=== PATIENT | female | born 1980 | race Hispanic/Latino ===

== ENCOUNTER 2017-07-04 22:26 | Inpatient (IN) | payer OTHER ==
[~2017-07-04] VITALS: Ht 152.4 cm; Wt 81.6 kg
[~2017-07-04 22:26] MED LIST: CEFTIN500 MG PO; CEPHALEXIN500 MG PO; CIPRO500 MG PO; CIPROFLOXACIN500 MG PO; COLACE100 MG PO; FAMOTIDINE20 MG PO; IBUPROFEN400 MG PO; LEVAQUIN500 MG PO; PHENAZOPYRIDIN100 MG PO; PYRIDIUM100 MG; SULFAMETHOXAZO1 EAC1 PO; TYLENOL # 31 EA PO; ULTRAM 50MG50 MG PO; [UNRECOGNIZED DRUG - OTHER] PO
--- OUTSIDE RECORDS SUMMARY | 2017-07-04 22:29 | XMS REPORT ---
Author [facility] Address Unknown Phone Unavailable Care Team Providers Care Precipitate Washer Name Role Phone PENNY HENDRICKSON Unavailable Unavailable KELVIN VANG Unavailable Unavailable Problems This patient has no known problems. Allergies, Adverse Reactions, Alerts This patient has no known allergies or adverse reactions. Medications This patient has no known medications. Results Test Description Test Time Test Comments Text Results Atomic Results Result Comments ABDOMEN-1VIEW (KUB) [place] [address] Patient Name: BARNEY ANG MR #: [id number] : 1980 Age/Sex: 36/F Req #: [id number] [facility] Physician: Ordered by: PENNY HENDRICKSON MD Report #: [id number] Location: [facility] Room/Bed: Procedure: [id number] DX/ABDOMEN-1VIEW (KUB) Exam Date: 04/30/17 Exam Time: 1545 REPORT STATUS: Signed PROCEDURE: X-RAY ABDOMEN - KUB COMPARISON: Abdomen one view 03/30/2017. INDICATIONS : CALCULUS OF KIDNEY FINDINGS: There is a non-obstructed bowel- gas pattern. Multiple calculi project over the renal shadows bilaterally, the largest measuring 1.6 cm in the inferior pole of the left kidney. There are no calcifications projected over the expected course of the ureters or bladder. There are no acute osseous abnormalities. The lung bases are clear. CONCLUSION: Stable bilateral nephrolithiasis. Dictated by: Cory Garsia M.D. on 04/30/2017 at 16:40 Electronically approved by: Cory Garsia M.D. on 04/30/2017 at 16:40 Dictated By: CORY GARSIA MD 1640 Transcribed By: YUSUF on 04/30/17 1640 COPY TO: PENNY HENDRICKSON MD ABDOMEN-1VIEW (KUB) [place] [address] Patient Name: BARNEY ANG MR #: [id number] : 1980 Age/Sex: 36/F Req #: [id number] Adm Physician: Ordered by: PENNY HENDRICKSON MD Report #: [id number] Location: OR Room/Bed: Procedure: [id number] DX/ABDOMEN-1VIEW (KUB) Exam Date: 03/30/17 Exam Time: 0607 REPORT STATUS: Signed ABDOMEN-1VIEW (KUB) Clinical history: Preoperative evaluation for stones Technique: AP view abdomen Comparison: 03/16/2017 Findings: Hemidiaphragms are excluded from view. Nonobstructive bowel gas pattern. Cholecystectomy clips. Left renal stone burden overall appears decreased from prior. The largest stones measure approximately 1.7 cm over the left lower pole and 1 cm over the left renal pelvis. Stable right renal stone burden, the largest 6 mm over the right interpolar region. 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 Impression: 1. Mild decrease in left renal stone burden with large stones over the left lower pole and renal pelvis. 2. Stable right renal stone burden. Signed by: Dr Steve Tavarez MD on 03/30/2017 6:33 AM Dictated By: STEVE TAVAREZ MD 2 Transcribed By: ANGELINA on 03/30/17632 COPY TO: PENNY HENDRICKSON MD ABDOMEN-1VIEW (KUB) [place] [address] Patient Name: BARNEY ANG MR #: [id number] : 1980 Age/Sex: 36/F Req #: [id number] Adm Physician: Ordered by: PENNY HENDRICKSON MD Report #: [id number] Location: OR Room/Bed: Procedure: [id number] DX/ABDOMEN-1VIEW (KUB) Exam Date: 03/16/17 Exam Time: 0635 REPORT STATUS: Signed EXAM: ABDOMEN- 1VIEW (KUB) DATE: 03/16/2017 6:11 AM Time stamp on exam: 0627 hours INDICATION: Presurgical assessment COMPARISON: None FINDINGS: LINES/TUBES: None BOWEL PATTERN: No evidence for obstruction. SOFT TISSUES: Bilateral calcifications overlying the renal parenchyma more conspicuous in the inferior pole of the left kidney, the largest measuring 1.4 cm in diameter, the largest on the right measuring 0.6 cm. LUNG BASES: Not included BONES: Diffuse sclerosis of the left iliac bone adjacent to the SI joint IMPRESSION: 1. Bilateral nephrolithiasis as described above. 2. Sclerotic lesion in the left iliac bone may represent osteitis condensans iliac Signed by: Dr. Ryan Vyas M.D. on 03/16/2017 6:57 AM Dictated By: RYAN PEREZ MD 0657 Transcribed By: ANGELINA on 03/16/17 0657 COPY TO: PENNY HENDRICKSON MD ABDOMEN-1VIEW (KUB) [place] [address] Patient Name: BARNEY ANG MR #: [id number] : 1980 Age/Sex: 36/F Req #: [id number] Adm Physician: KELVIN VANG MD Ordered by: RICARDA ABDI MD Report #: [id number] Location: MED/SURG2 Room/Bed: [facility] Procedure: [id number] DX/ABDOMEN-1VIEW (KUB) Exam Date: 02/05/17 Exam Time: 1710 REPORT STATUS: Signed PROCEDURE: X-RAY ABDOMEN - KUB COMPARISON: CT scan of the abdomen and pelvis dated 02/03/2017 INDICATIONS: BILATERAL KIDNEY STONES FINDINGS: There are several large stones measuring up to 1.2 cm overlying the lower pole of the left kidney. Smaller stones overlie the mid aspect of the right kidney measuring up to 5 mm. There are no dilated loops of bowel to suggest obstruction. There are no masses. There is no evidence of free air. No acute osseous abnormalities are present. Sclerosis of the left iliac bone at the SI joint has a benign appearance. CONCLUSION: Bilateral renal lithiasis. Juan R Olivarez D.O. Dictated by: Juan R Olivarez D.O. on 02/05/2017 at 18:49 Electronically approved by: Juan R Olivarez D.O. on 02/05/2017 at 18:49 Dictated By: JUAN R OLIVAREZ DO 48 Transcribed By: YUSUF on 02/05/171848 COPY TO: RICARDA ABDI MD CT ABDOMEN/PELVIS WO [place] [id number] [place] [address] Patient Name: BARNEY ANG MR #: [id number] : 1980 Age/Sex: 36/F Req #: [id number] Adm Physician: KELVIN VANG MD Ordered by: JOSÉ ANTONIO BREWSTER MD Report #: [id number] Location: [facility]/SURG Room/Bed: [facility] Procedure: [id number] CT/CT ABDOMEN/PELVIS WO Exam Date: 02/03/17 Exam Time: 1639 REPORT STATUS: Signed EXAM: CT Abdomen and Pelvis WITHOUT contrast INDICATION: Abdominal pain COMPARISON: CT abdomen and pelvis 09/01/2016 TECHNIQUE: Abdomen and pelvis were scanned utilizing a multidetector helical scanner from the lung base to the pubic symphysis. Coronal and sagittal reformations were obtained. The lack of intravenous contrast limits the evaluation of the solid organs, vasculature , and possible lymphadenopathy. Protocol: General survey without contrast IV CONTRAST: No intravenous contrast was administered as per physician request. ORAL CONTRAST: None. COMPLICATIONS: None. RADIATION DOSE: Total Exam DLP: 468.7 mGy*cm. CTDIvol has been reviewed. It is below the limits set by the Radiation Protocol Committee (RPC). FINDINGS: LINES: None. Lower thorax: No parenchymal abnormality. No pneumothorax. No pleural effusion. Liver: No focal mass. No hepatomegaly. Normal parenchyma. Gallbladder: Cholecystectomy. Biliary tree: No intrahepatic duct dilation. No extrahepatic duct dilation. Spleen: No splenomegaly. No focal mass. Pancreas: No focal mass. Normal pancreatic duct. No peripancreatic inflammatory changes. Kidneys: 6 separate calculi are present in the right kidney, the largest measuring 5.9 mm in the interpolar region of the right kidney. 5 separate calculi are present in the left kidney, the largest measuring 1.3 cm in the interpolar region. 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 Minimal hydronephrosis of the left superior pole, series 3 image 43. No cysts. No perinephric soft tissue inflammatory changes. Adrenal glands: No adrenal nodules.. Bladder: Normal urinary bladder. Pelvic organs: Normal. GI: No bowel wall thickening. No air-fluid levels. The stomach and small bowel are normal. The colon is normal. Appendectomy. A moderate amount of retained feces limits intraluminal evaluation of the colon. Peritoneum/retroperitoneum: No pneumoperitoneum. No ascites. No drainable fluid collection. Lymph nodes: No lymphadenopathy. . Vessels: No focal abnormality. . Limited evaluation. Bones: No focal abnormality. Soft tissues: No focal abnormality. IMPRESSION: Minimal hydronephrosis of the superior pole the left kidney. Bilateral nephrolithiasis. Signed by: Dr. Cory Garsia M.D. on 02/03/2017 5:21 PM Dictated By: CORY GARSIA MD 172 Transcribed By: ANGELINA on 02/03/171720 COPY TO: JOSÉ ANTONIO BREWSTER MD
[2017-07-04] MEDS ORDERED: ONDANSETRON HCL INJ 2 MG/ML VIAL IV STA (22:33)
[2017-07-04] MEDS ORDERED: KETOROLAC TROMETHAMINE 30 MG/ML VIAL IV STA (22:33)
[2017-07-04 23:17] LABS: BASOPHILS % 0.4 % (0.0-1.0); EOSINOPHILS # (AUTO) 0.1 (0.0-0.4); EOSINOPHILS % 1.3 % (0.0-6.0); HEMATOCRIT 37.8 % (34.2-44.1); HEMOGLOBIN 12.2 g/dL (12.0-16.0); LYMPHOCYTES # (AUTO) 2.9 (1.0-3.2); MEAN CORPUSCULAR HEMOGLOBIN 26.7 pg (28-32); MEAN CORPUSCULAR HGB CONC 32.3 g/dL (31-35); MEAN CORPUSCULAR VOLUME 82.7 fL (81-99); MONOCYTES # (AUTO) 0.5 (0.2-0.8); MONOCYTES % 5.5 % (4.4-11.3); NEUTROPHILS # (AUTO) 5.5 (2.1-6.9); NEUTROPHILS % 60.5 % (38.7-80.0); PLATELET COUNT 256 x10e3/uL (140-360); RED BLOOD COUNT 4.57 x10e6/uL (3.6-5.1); RED CELL DISTRIBUTION WIDTH 14.4 % (11.7-14.4)
[2017-07-04 23:18] LABS: BILIRUBIN,URINE NEGATIVE (NEGATIVE); KETONES,URINE NEGATIVE (NEGATIVE); LEUKOCYTE ESTERASE ,URINE 2+ (NEGATIVE); NITRITE,URINE NEGATIVE (NEGATIVE); PROTEIN,URINE DIPSTICK NEGATIVE (NEGATIVE); URINE UROBILINOGEN 0.2 mg/dL (0.2 - 1)
[2017-07-04 23:20] LABS: CLARITY,URINE SL CLOUDY (CLEAR); COLOR,URINE YELLOW (YELLOW); PREGNANCY TEST, URINE NEGATIVE (NEGATIVE)
[2017-07-04 23:24] LABS: BACTERIA,URINE MODERATE /HPF; EPITHELIAL CELLS,URINE FEW /LPF; WBC,URINE (MAN) >50 /HPF (0-5)
[2017-07-04 23:34] LABS: ALANINE AMINOTRANSFERASE 12 IU/L (0-55); ALBUMIN 3.8 g/dL (3.5-5.0); ALBUMIN/GLOBULIN RATIO 0.8 (0.8-2.0); ALKALINE PHOSPHATASE 87 IU/L (40-150); ANION GAP 14.6 mmol/L (8-16); BLOOD UREA NITROGEN 13 mg/dL (7-26); BUN/CREATININE RATIO 16 (6-25); CALCIUM 9.5 mg/dL (8.4-10.2); CARBON DIOXIDE 28 mmol/L (22-29); CHLORIDE 99 mmol/L (98-107); CREATININE, SERUM 0.79 mg/dL (0.57-1.11); EST GLOMERULAR FILTRATION RATE > 60 ML/MIN (60-); GLUCOSE 102 mg/dL (74-118); POTASSIUM 3.6 mmol/L (3.5-5.1); SODIUM 138 mmol/L (136-145)
[2017-07-05] VITALS (9 sets, daily range): BP systolic 93–116; BP diastolic 51–78
--- NOTE | 2017-07-05 00:25 | Diagnostic Imaging Report ---
EXAM: CT Abdomen and Pelvis WITHOUT contrast INDICATION: Nephrolithiasis COMPARISON: 02/03/2017 TECHNIQUE: Abdomen and pelvis were scanned utilizing a multidetector helical scanner from the lung base to the pubic symphysis without administration of IV contrast. Absence of intravenous contrast decreases sensitivity for detection of focal lesions and vascular pathology. Coronal and sagittal reformations were obtained. Stone protocol is performed. IV CONTRAST: None. ORAL CONTRAST: Water RADIATION DOSE: Total DLP: 543.46 mGy*cm Estimated effective dose: (DLP x 0.015 x size factor) mSv COMPLICATIONS: None FINDINGS: LINES and TUBES: None. LOWER THORAX: Unremarkable HEPATOBILIARY: No focal hepatic lesions. No biliary ductal dilation. GALLBLADDER: No radio-opaque stones or sludge. No wall thickening. SPLEEN: No splenomegaly. PANCREAS: No focal masses or ductal dilatation. ADRENALS: No adrenal nodules KIDNEYS/URETERS: There is evidence of bilateral hydronephrosis with associated right hydroureteronephrosis. There is a new distal right ureteral stone measuring 8 mm in diameter at the UVJ, obstructive. There is a persistent, stable, 1.2 cm stone in the left renal pelvis, partially obstructive. No cystic or solid mass lesions. Additional bilateral renal stones are present, in the right renal collecting system reaching up to 7 mm in diameter and 1.6 cm in the left interpolar region GI TRACT: No abnormal distention, wall thickening, or evidence of bowel obstruction. There are post surgical changes of appendectomy. PELVIC ORGANS/BLADDER: Unremarkable. LYMPH NODES: No lymphadenopathy. VESSELS: Unremarkable. PERITONEUM / RETROPERITONEUM: No free air or fluid. BONES: Unremarkable. SOFT TISSUES: Unremarkable. IMPRESSION: 1. Obstructive uropathy in the right renal collecting system demonstrated by hydroureter and hydronephrosis secondary to a obstructive 8 mm stone in the right UVJ. Additional nephrolithiasis in the right renal collecting system present. 2. Persistent 1.2 cm left renal pelvic stone resulting in mild hydronephrosis, stable since prior examination. Additional nephrolithiasis in the left kidney as described above. Signed by: Dr. Ryan Vyas M.D. on 07/05/2017 12:21 AM
[2017-07-05] MEDS ORDERED: HYDROMORPHONE 1MG/1ML INJ IV PRN (00:45)
[2017-07-05] MEDS: CEFTRIAXONE SOD 1 GM VIAL IV SCH (00:45)
[2017-07-05] MEDS: SODIUM CHLORIDE 0.9% 1000ML 1,000 ML IV SCH ×3 (01:49→19:13)
[2017-07-05] MEDS: HYDROMORPHONE 2MG/ML INJ IV PRN ×2 (05:05→16:15)
[2017-07-05] MEDS ORDERED: KETOROLAC TROMETHAMINE 30 MG/ML VIAL IV PRN (09:15)
--- NOTE | 2017-07-05 09:47 | History and Physical ---
PCP: Dr. Corazon Rogel FIELD TECHNICAL SUPPORT CONSULTANT: Dr. All Lo CHIEF COMPLAINT: Right renal colic associated with CT scan showing hydroureter and hydronephrosis secondary to 8-mm stone in the right UVJ area. SUMMARY: A 37-year-old female with multiple stones, history of stone in the past, multiple lithotripsies and stone management came in this time with acute right renal colic associated with kidney stone, 8 mm. She also has mild hydronephrosis on the left with persistent 1.2 cm left renal pelvis stone. The patient also had a urinary tract infection. She is stable at this time. PAST MEDICAL HISTORY: Kidney stones with multiple management. PAST SURGICAL HISTORY: Stone management. SOCIAL HISTORY: Patient does not smoke. She is a social drinker. ALLERGIES: NO KNOWN ALLERGIES. HOME MEDICATIONS: Not significant. REVIEW OF SYSTEMS: Right renal colic, urinary tract infection and dysuria. PHYSICAL EXAMINATION VITAL SIGNS: Temperature is 97, blood pressure 112/78, pulse rate 67, respirations 20. GENERAL: The patient is not in acute distress. Pain controlled. HEENT: Normocephalic, atraumatic and anicteric. NECK: Supple grossly. PULMONARY: Clear. CARDIOVASCULAR: Regular rate and rhythm. ABDOMEN: Soft and nontender anteriorly with bilateral CVA tenderness, right greater than left. EXTREMITIES: No cyanosis or edema. NEUROLOGIC: No focal deficit. CT scan stone protocol showed obstructive uropathy in the right renal collection system demonstrated by the hydroureter and hydronephrosis secondary to an obstructive 8-mm stone in the right UVJ. Additionally, nephrolithiasis in the right renal collecting system present. Persistent 1.2 cm left renal pelvic stone resulting in mild hydronephrosis. Urinalysis with 2+ blood, 2+ leukocyte esterase, trace wbcs, and moderate bacteria. Chemistry: Sodium 138, potassium 3.6, chloride 99, bicarb 28, BUN 13, creatinine 0.8, glucose 102. WBC 9, hemoglobin 12.3, hematocrit 38, and platelets of 256,000. IMPRESSION 1. Bilateral hydronephrosis and hydroureter, worse on the right compared to the left. 2. History urinary tract infection complicated with kidney stone. 3. Right and left renal colic. 4. History of recurrent stone. PLAN: Antibiotics. Pain control. Stone management per Dr. All Lo, who is her urologist. Continue with IV fluids for now. Job#: [id number] RI cc:CORAZON ROGEL MD
[2017-07-05] MEDS: ONDANSETRON HCL INJ 2 MG/ML VIAL IV PRN ×2 (11:48→20:10)
[2017-07-05 15:28] LABS: BILIRUBIN,URINE NEGATIVE (NEGATIVE); CLARITY,URINE HAZY (CLEAR); COLOR,URINE YELLOW (YELLOW); KETONES,URINE NEGATIVE (NEGATIVE); LEUKOCYTE ESTERASE ,URINE 1+ (NEGATIVE); PROTEIN,URINE DIPSTICK NEGATIVE (NEGATIVE); URINE UROBILINOGEN 0.2 mg/dL (0.2 - 1)
[2017-07-05 15:29] LABS: NITRITE,URINE POSITIVE (NEGATIVE)
--- NOTE | 2017-07-05 15:32 | Diagnostic Imaging Report ---
PROCEDURE:X-RAY ABDOMEN - KUB COMPARISON:KUB 04/30/2017, CT 07/04/2017 INDICATIONS:CALCULUS OF KIDNEY FINDINGS: Bilateral renal calculi, largest measuring 0.4 cm on the right and a cluster of stones measuring up to 1.2 cm on the left. Persistent 0.8 cm cluster of stones projecting over the medial left renal silhouette likely representing the stones in the renal pelvis on CT 07/04/2017. Stable 0.5 cm calcification overlies the right pelvis likely representing the right UVJ stone on CT 07/04/2017. There is a non-obstructed bowel-gas pattern. There are no acute osseous abnormalities. The lung bases are clear. CONCLUSION: Unchanged stone in the right UVJ. Dictated by: Leroy Fontanez M.D. on 07/05/2017 at 15:41 Electronically approved by: Leroy Fontanez M.D. on 07/05/2017 at 15:41
[2017-07-05 15:40] LABS: BACTERIA,URINE MANY /HPF; EPITHELIAL CELLS,URINE FEW /LPF; RBC,URINE 0-5 /HPF (0-5)
[2017-07-05 15:41] LABS: MUCUS,URINE FEW (RARE)
[2017-07-06] VITALS (8 sets, daily range): BP systolic 93–106; BP diastolic 52–66
[2017-07-06] MEDS: SODIUM CHLORIDE 0.9% 1000ML 1,000 ML IV SCH ×3 (04:57→23:49)
[2017-07-06] MEDS: HYDROMORPHONE 2MG/ML INJ IV PRN ×3 (04:57→22:11)
[2017-07-06] MEDS: ONDANSETRON HCL INJ 2 MG/ML VIAL IV PRN (04:57)
[2017-07-06 06:50] LABS: BASOPHILS % 0.5 % (0.0-1.0); EOSINOPHILS # (AUTO) 0.2 (0.0-0.4); EOSINOPHILS % 3.2 % (0.0-6.0); HEMATOCRIT 32.7 % (34.2-44.1); HEMOGLOBIN 10.5 g/dL (12.0-16.0); LYMPHOCYTES # (AUTO) 2.3 (1.0-3.2); LYMPHOCYTES % 36.8 % (18.0-39.1); MEAN CORPUSCULAR HEMOGLOBIN 27.3 pg (28-32); MEAN CORPUSCULAR HGB CONC 32.1 g/dL (31-35); MEAN CORPUSCULAR VOLUME 84.9 fL (81-99); MONOCYTES # (AUTO) 0.4 (0.2-0.8); MONOCYTES % 5.6 % (4.4-11.3); NEUTROPHILS # (AUTO) 3.4 (2.1-6.9); NEUTROPHILS % 53.7 % (38.7-80.0); PLATELET COUNT 201 x10e3/uL (140-360); RED BLOOD COUNT 3.85 x10e6/uL (3.6-5.1); RED CELL DISTRIBUTION WIDTH 14.6 % (11.7-14.4)
[2017-07-06 07:16] LABS: ALANINE AMINOTRANSFERASE 10 IU/L (0-55); ALBUMIN/GLOBULIN RATIO 0.9 (0.8-2.0); ALKALINE PHOSPHATASE 68 IU/L (40-150); ANION GAP 10.6 mmol/L (8-16); BLOOD UREA NITROGEN 12 mg/dL (7-26); BUN/CREATININE RATIO 18 (6-25); CARBON DIOXIDE 28 mmol/L (22-29); CHLORIDE 104 mmol/L (98-107); CREATININE, SERUM 0.68 mg/dL (0.57-1.11); EST GLOMERULAR FILTRATION RATE > 60 ML/MIN (60-); GLUCOSE 89 mg/dL (74-118); POTASSIUM 3.6 mmol/L (3.5-5.1); SODIUM 139 mmol/L (136-145)
[2017-07-07] VITALS: BP 101/53
[2017-07-07] MEDS: CEFTRIAXONE SOD 1 GM VIAL IV SCH (00:23)
[2017-07-07 04:00] VITALS: BP 109/53
[2017-07-07] MEDS ORDERED: IOPAMIDOL 610MG/1ML 300 MG/ML VIAL IV ONE (06:36)
[2017-07-07] MEDS: HYDROMORPHONE 2MG/ML INJ IV PRN ×3 (09:05→18:53)
--- NOTE | 2017-07-07 10:10 | Operative Report ---
DATE OF PROCEDURE: July 07, 2017 PREOPERATIVE DIAGNOSES 1. Right ureteral calculus. 2. Right hydronephrosis. 3. Hematuria. POSTOPERATIVE DIAGNOSES 1. Right ureteral calculus. 2. Right hydronephrosis. 3. Hematuria. PROCEDURES 1. Cystourethroscopy with left ureteral catheterization and left retrograde pyelogram (separate procedure for microscopic hematuria). 2. Right-sided ureteroscopy with laser lithotripsy and stent placement ([id number]), entirely separate procedure for right ureteral calculus. 3. Supervision of fluoroscopy for stent placement. 4. Supervision of fluoroscopy for ureteral dilation and stone manipulation. 5. Interpretation of retrograde ureteropyelography. ANESTHESIA: General. ESTIMATED BLOOD LOSS: Minimal. COMPLICATIONS: None. INDICATIONS FOR PROCEDURE: Nela Buitrago is a 37-year-old female with a history of failure of passage of an 8-mm distal right ureteral calculus. She and I had a long discussion regarding the alternatives, risks and benefits, including doing nothing, ureteroscopy, shockwave lithotripsy, percutaneous surgery, open surgery. She voiced an understanding of the options, the alternatives, and the risks and benefits. She voiced her understanding that the stent is a temporary indwelling device and must be removed. Failure to do could lead to encrustation, infection, inflammation, actual loss of the kidney and even . She elected to proceed. PROCEDURE IN DETAIL: After informed consent was obtained, the patient was taken to the operative suite and placed supine on the table and underwent general anesthesia by the anesthesia service. She was placed in the dorsal lithotomy position. She was sterilely prepped and draped in the standard fashion for cystoscopy. A 22.5-Uzbek cystoscope was inserted per urethra. A normal urethra was noted. Panendoscopy of the bladder revealed no tumors and no stones. Both ureteral orifices were in their normal anatomic location and position and were seen to efflux clear urine. Bilateral retrograde pyelograms were performed. The right revealed a distal 8-mm stone, and the left revealed multiple renal calculi. A guidewire was placed on the right side. The ureteroscope was driven to the level of the stone. Utilizing 365 micron laser fiber, the stone was broken into multiple fragments, which were then basketed and extracted. A 6 x 24-cm ureteral stent was deployed with a coil in the renal pelvis and a coil in the bladder. The string was left outside. The bladder was then drained. The patient was awakened from anesthesia and transported to the recovery room in excellent condition. SUPERVISION OF FLUOROSCOPY AND INTERPRETATION OF RETROGRADE PYELOGRAPHY: I was present throughout the entire procedure and supervised the use of fluoroscopy. There was no radiologist present at any time during the procedure. Attention was turned, and bilateral ureteral orifices were catheterized with 5-Uzbek, open-ended catheters. The right revealed an 8-mm distal ureteral calculus with proximal hydronephrosis. The left revealed multiple, than 2 cm, stone burden kidney stones. No hydronephrosis. IMPRESSION 1. Right ureteral calculus. 2. Large left stone burden. Job#: [id number]
[2017-07-07] MEDS: SODIUM CHLORIDE 0.9% 1000ML 1,000 ML IV SCH ×2 (10:27→18:52)
[2017-07-07 12:03] VITALS: BP 111/73
[2017-07-07 15:45] VITALS: BP 105/62
[2017-07-07] MEDS ORDERED: ONDANSETRON HCL INJ 2 MG/ML VIAL ONE (17:18)
[2017-07-07] MEDS ORDERED: DEXAMETHASONE SOD PHOS INJ 4 MG/ML VIAL ONE (17:18)
[2017-07-07] MEDS ORDERED: LIDOCAINE HCL 2% LOCAL INJ 5 ML SDV VIAL INJ ONE (17:18)
[2017-07-07] MEDS ORDERED: DESFLURANE 240 ML BTL INH ONE (17:18)
[2017-07-07] MEDS ORDERED: PROPOFOL IV EMULSION 10 MG/ML 20 ML VIAL ONE (17:18)
[2017-07-07] MEDS ORDERED: FENTANYL CITRATE/PF 100MCG/2 ML INJ ONE (17:34)
[2017-07-07] MEDS ORDERED: MIDAZOLAM HCL 2 MG/2 ML VIAL ONE (17:34)
[2017-07-07 20:00] VITALS: BP 107/62
[2017-07-08 00:24] VITALS: BP 104/68
[2017-07-08] MEDS: CEFTRIAXONE SOD 1 GM VIAL IV SCH (00:38)
[2017-07-08] MEDS: HYDROMORPHONE 2MG/ML INJ IV PRN (04:39)
[2017-07-08 05:38] VITALS: BP 113/64
[2017-07-08 07:41] VITALS: BP 107/64
[2017-07-08 07:51] LABS: BASOPHILS % 0.3 % (0.0-1.0); EOSINOPHILS % 0.3 % (0.0-6.0); HEMATOCRIT 35.1 % (34.2-44.1); HEMOGLOBIN 11.4 g/dL (12.0-16.0); LYMPHOCYTES # (AUTO) 2.3 (1.0-3.2); LYMPHOCYTES % 19.7 % (18.0-39.1); MEAN CORPUSCULAR HEMOGLOBIN 26.8 pg (28-32); MEAN CORPUSCULAR HGB CONC 32.5 g/dL (31-35); MEAN CORPUSCULAR VOLUME 82.6 fL (81-99); MONOCYTES # (AUTO) 0.6 (0.2-0.8); MONOCYTES % 5.2 % (4.4-11.3); NEUTROPHILS # (AUTO) 8.8 (2.1-6.9); NEUTROPHILS % 74.2 % (38.7-80.0); PLATELET COUNT 251 x10e3/uL (140-360); RED BLOOD COUNT 4.25 x10e6/uL (3.6-5.1); RED CELL DISTRIBUTION WIDTH 14.3 % (11.7-14.4)
[2017-07-08 08:11] LABS: ANION GAP 11.5 mmol/L (8-16); BLOOD UREA NITROGEN 8 mg/dL (7-26); BUN/CREATININE RATIO 12 (6-25); CALCIUM 8.3 mg/dL (8.4-10.2); CARBON DIOXIDE 26 mmol/L (22-29); CHLORIDE 102 mmol/L (98-107); CREATININE, SERUM 0.66 mg/dL (0.57-1.11); EST GLOMERULAR FILTRATION RATE > 60 ML/MIN (60-); GLUCOSE 95 mg/dL (74-118); POTASSIUM 3.5 mmol/L (3.5-5.1); SODIUM 136 mmol/L (136-145)
[2017-07-08 08:43] VITALS: BP 107/64
[2017-07-08 12:07] VITALS: BP 113/72
[2017-07-08] MEDS ORDERED: TYLENOL WITH C1 EACH PO (12:57)
[2017-07-08] MEDS ORDERED: ZOFRAN ODT4 MG SL (12:57)
[2017-07-08] MEDS ORDERED: KEFLEX500 MG PO (12:59)
--- NOTE | 2017-07-08 14:04 | Discharge Summary ---
PRIMARY CARE PHYSICIAN: Dr. Corazon Shin. TELEVISION MAINTENANCE MAN: Dr. All Lo. FINAL DIAGNOSES 1. Urinary tract infection with Escherichia coli and Streptococcus viridans. 2. Right ureteral stone associated with right hydronephrosis, complicated urinary tract infection. 3. Status post cystoscopy with right ureteral stent placement. SUMMARY: A 37-year-old female with bilateral stone, history of recurrent kidney stone, who came in this time with renal colic, right side flank pain worse than the left, associated with a large non-passable stone. The patient has hydronephrosis and subsequently has seen Dr. All Lo, her urologist, and underwent cystoscopy with right ureteral stent placement and lithotripsy. Patient is doing much better now. She is stable. The urinalysis with culture grew out E coli sensitive to multiple antibiotics. Patient is otherwise stable. She is comfortable on pain control. Leakage has resolved. The patient will go home today. Follow up with Dr. Lo as an outpatient. MEDICATIONS: Tylenol No. 3. p.r.n. for pain, Zofran p.r.n. for nausea and vomiting, and Keflex 500 mg t.i.d., give the patient 10-day supply. Patient is stable, discharged home today, and follow up as an outpatient with Dr. All Lo. She will follow up with Dr. Shin, her PCP for medication reconciliation per plan. Job#: [id number] SAK
== END 2017-07-08 13:25 | disposition home or self-care (01) | DRG 670 ==
LOC: ER 22:26 → ERHOLD 07-05 00:42 → MED/SURG2 07-05 00:50
PROVIDERS: ADMIT Internal Medicine; ATTEND Internal Medicine
PROC: BT1F1ZZ Fluoroscopy of Left Kidney, Ureter and Bladder using Low Osmolar Contrast (ICD-10-PCS; 2017-07-07)
PROC: BT1D1ZZ Fluoroscopy of Right Kidney, Ureter and Bladder using Low Osmolar Contrast (ICD-10-PCS; 2017-07-07)
PROC: 0TC68ZZ Extirpation of Matter from Right Ureter, Via Natural or Artificial Opening Endoscopic (ICD-10-PCS; principal; 2017-07-07 07:32)
PROC: 0T768DZ Dilation of Right Ureter with Intraluminal Device, Via Natural or Artificial Opening Endoscopic (ICD-10-PCS; 2017-07-07 07:32)
DX: N13.6 Pyonephrosis (principal); B95.4 Other streptococcus as the cause of diseases classified elsewhere; B96.20 Unspecified Escherichia coli [E. coli] as the cause of diseases classified elsewhere; Z28.21 Immunization not carried out because of patient refusal
CPT/HCPCS: 36415; 74018; 74176; 74420; 80048; 80053; 81001; 81025; 85025; 87086; 87186; 88300; 99284; J0696; J1100; J1885; J2001; J2250; J2405; J7030

== ENCOUNTER → 2017-07-27 | Day surgery (SDC) | payer OTHER ==
[~2017-07-27] MED LIST changes: +CEFTRIAXONE SOD 1 GM VIAL ONE; +DEXAMETHASONE SOD PHOS INJ 4 MG/ML VIAL ONE; +FENTANYL CITRATE/PF 100MCG/2 ML INJ ONE; +KEFLEX500 MG PO; +KETOROLAC TROMETHAMINE 30 MG/ML VIAL ONE; +LIDOCAINE HCL 2% LOCAL INJ 5 ML SDV VIAL INJ ONE; +MEPERIDINE HCL INJ 50 MG/ML INJ ONE; +MIDAZOLAM HCL 2 MG/2 ML VIAL ONE; +ONDANSETRON HCL INJ 2 MG/ML VIAL ONE; +PROPOFOL IV EMULSION 10 MG/ML 20 ML VIAL ONE; +SEVOFLURANE INHAL SOLN 250 ML PEN BTL ONE; +TYLENOL WITH C1 EACH PO; +ZOFRAN ODT4 MG SL
--- OUTSIDE RECORDS SUMMARY | 2017-07-27 05:26 | XMS REPORT | Continuity of Care Document ---
Author Author [facility] Organization [facility] Address [address] [place] [address] Phone Unavailable Care Team Providers Care Medical Front Desk Coordinator Name Role Phone NEGRITA ROGEL MD PCP Insurance Providers Guarantor Barney Buitrago Address [address] [place] [address] Email [email or web address] Policy Number [id number] Subscriber's Name Harrison Fleming A Relationship 01 Group Number [id number] Group Name peerTransfer Effective Date 17 Advance Directives Directive Response Recorded Date/Time Does the patient have an advance directive? No 07/05/17 1:00am If yes, is advance directive on file with [facility]? No 07/05/17 1:00am If not on file with [facility] will patient provide a copy? No 07/05/17 1:00am Do you have a Directive to Physician? No 07/04/17 11:04pm Do you have a Medical Power of Recreation Technician? No 07/04/17 11:04pm Do you have an out of hospital Do Not Resuscitate Order? No 07/04/17 11:04pm Do you have any special needs we should be aware of? No 07/04/17 11:04pm Do you have a support person here with you today? Yes 07/04/17 11:04pm Did patient receive Notice of Privacy Practices? Yes 07/04/17 11:04pm Did patient receive patient rights and responsibilities? Yes 07/04/17 11:04pm Problems Medical Problem Onset Date Status Pyelonephritis 08/09/2014 Acute UTI (urinary tract infection) Unknown Ureteral stent displacement Unknown Ureterolithiasis 08/09/2014 Acute Medications Current Home Medications Medication Dose Units Route Directions Days Qty Instructions Start Date Acetaminophen With Codeine (Tylenol With Codeine #3 Tablet) 1 Each Tablet 300 Mg Oral Every 6 Hours as needed for Pain Cephalexin Monohydrate (Keflex) 500 Mg Capsule 500 Mg Oral Three Times A Day Ondansetron (Zofran Odt) 4 Mg Tab.rapdis 4 Mg Sublingual Every 6 Hours as needed for Nausea Past Home Medications Medication Directions Ordered Status Acetaminophen/Codeine Phosphate (Tylenol # 3*) 1 Ea Tab, 1 Tab Oral Every 6 Hours as needed for Pain 09/05/16 Discontinued Cefuroxime Axetil (Ceftin) 500 Mg Tablet, 500 Mg Oral Twice A Day 09/05/16 Discontinued Cephalexin 500 Mg Capsule, 500 Mg Oral Twice A Day Discontinued Ciprofloxacin Hcl 500 Mg Tablet, 500 Mg Oral Twice A Day Discontinued Ciprofloxacin Hcl (Cipro) 500 Mg Tablet, 500 Mg Oral Every 12 Hours Discontinued Docusate Sodium (Colace) 100 Mg Cap, 100 Mg Oral Twice A Day 09/05/16 Discontinued Famotidine 20 Mg Tab, 20 Mg Oral Twice Daily Before Meals 09/05/16 Discontinued Ibuprofen 400 Mg Tablet, 800 Mg Oral Three Times A Day Discontinued Ibuprofen 400 Mg Tablet, 800 Mg Oral Every 8 Hours Discontinued Levofloxacin (Levaquin) 500 Mg Tablet, 500 Mg Oral Daily Discontinued Levofloxacin (Levaquin) 500 Mg Tablet, 500 Mg Oral Daily 08/11/14 Discontinued Phenazopyridine Hcl (Pyridium) 100 Mg Tablet, Discontinued Phenazopyridine Hcl 100 Mg Tablet, 200 Mg Oral Three Times A Day Discontinued Ribofan , 800 Mg Oral Three Times A Day Discontinued Sulfamethoxazole/Trimethoprim (Sulfamethoxazole-Tmp Ds Tablet) 1 Each Tablet, 1 Tab Oral Twice A Day Discontinued Tramadol Hcl (Ultram 50MG*) 50 Mg Tab, 50 Mg Oral Twice A Day as needed for Pain Discontinued Social History Social History Problem Response Recorded Date/Time Onset Date Status Hx Psychiatric Problems No 07/05/2017 1:00am Not Applicable Not Applicable Hx Eating Disorder No 07/05/2017 1:00am Not Applicable Not Applicable Hx Substance Use Disorder No 07/05/2017 1:00am Not Applicable Not Applicable Hx Depression No 07/05/2017 1:00am Not Applicable Not Applicable Hx Alcohol Use No 07/05/2017 1:00am Not Applicable Not Applicable Hx Substance Use Treatment No 07/05/2017 1:00am Not Applicable Not Applicable Hx Physical Abuse No 07/05/2017 1:00am Not Applicable Not Applicable Smoking Status Start Date Stop Date Never Smoker Hospital Discharge Instructions No hospital discharge instruction information available. Plan of Care Discharge Date 07/08/17 1:25pm Disposition HOME, SELF-CARE Instructions/Education Provided Flank Pain Kidney Stones Prescriptions See Medication Section Additional Instructions/Education FOLLOW UP WITH MD PENNY HENDRICKSON INSTRUCTED [phone] Functional Status Query Response Date Recorded Assistive Devices None July 05, 2017 1:00am Ambulation Ability Independent July 05, 2017 1:00am Toileting Ability Independent July 08, 2017 9:53am Allergies, Adverse Reactions, Alerts No known allergies. Immunizations No immunization information available. Vital Signs Acute Vital Signs Vital Response Date/Time Temperature (Fahrenheit) 98.0 degrees F (97.6 - 99.5) 07/08/2017 12:07pm Pulse Pulse Rate (adult) 79 bpm (60 - 90) 07/08/2017 12:07pm Respiratory Rate 19 bpm (12 - 24) 07/08/2017 12:07pm Blood Pressure 113/72 mm Hg 07/08/2017 12:07pm Height 5 ft 0 in 07/04/2017 10:31pm Weight 180 lb 07/04/2017 10:31pm Body Mass Index 35.2 kg/m^2 07/05/2017 1:00am Results Laboratory Results Test Name Result Units Flags Reference Collection Date/Time Result Date/ Time Comments Bedside Glucose 198 mg/dL H 70-120 10/21/2016 4:06pm 10/21/2016 4:14pm Meter ID: [id number] Lactic Acid Level 6.9 MG/DL 4.5-19.8 10/16/2016 8:39pm 10/16/2016 9: 15pm Uric Acid 2.7 mg/dL 2.6-6.0 10/20/2016 4:45pm 10/20/2016 5:31pm Phosphorus Level 1.9 MG/DL L 2.3-4.7 10/18/2016 6:00am 10/18/2016 6: 44am Magnesium Level 1.7 MG/DL 1.3-2.1 10/18/2016 6:00am 10/18/2016 6:44am Urine Oxalate 7 mg/L Undefined 10/20/2016 3:51pm 10/24/2016 2:24pm Urine Oxalate 24 Hour 1 mg/24 hr L 4-31 10/20/2016 3:51pm 10/24/2016 2: 24pm Urine Citric Acid 35 mg/L Undefined 10/20/2016 3:51pm 10/24/2016 2: 24pm Urine Citric Acid 4 mg/24 hr L 320-1240 10/20/2016 3:51pm 10/24/2016 2: 25pm This test was developed and its performance characteristics determined by [facility]. It has not been cleared or approved by the Food and Drug Administration. Performed at: [address] [id number] Professor Of Journalism: Hi Solis MD, Phone: [phone] Urine Calcium mg/dL 5.5 mg/dL 10/20/2016 3:51pm 10/27/2016 6:37am Reference Range Not Established Testing performed by: [address] [id number] Dir: Asher Cameron MD Urine Calcium 24 Hour 5.5 10/20/2016 3:51pm 10/27/2016 6:37am Reference Range: 100.0 - 300.0 mg/24 hr Testing performed by: [address] [id number] Dir. Hi Solis MD Parathyroid Hormone 29 pg/mL 15-65 10/20/2016 4:45pm 10/25/2016 4:22am Calcium (Send out) 8.6 mg/dL L 8.7-10.2 10/20/2016 4:45pm 10/25/2016 4: 22am Parathyroid Hormone Interpretation Comment . 10/20/2016 4:45pm 2016 4:22am Interpretation Intact PTH Calcium (pg/mL) (mg/dL) Normal 15 - 65 8.6 - 10.2 Primary Hyperparathyroidism >65 >10.2 Secondary Hyperparathyroidism >65 <10.2 Non-Parathyroid Hypercalcemia <65 >10.2 Hypoparathyroidism <15 < 8.6 Non-Parathyroid Hypocalcemia 15 - 65 < 8.6 Performed at: [facility] [address] [id number] Professor Of Journalism: Asher Cameron MD, Phone: [phone] Performed at: - [facility] [address] [id number] Professor Of Journalism: Hi Solis MD, Phone: [phone] Urine Amorphous Sediment FEW FEW 10/31/2016 1:24pm 10/31/2016 2:17pm Prothrombin Time 12.7 seconds 11.9-14.5 12/04/2016 8:15am 12/04/2016 8: 34am Prothromb Time International Ratio 0.91 12/04/2016 8:15am 2016 8:34am Oral Anticoagulant Therapy INR Values: 1. Low Intensity Therapy 1.5 - 2.0 2. Moderate Intensity Therapy 2.0 - 3.0 3. High Intensity Therapy(1) 2.5 - 3.5 4. High Intensity Therapy(2) 3.0 - 4.0 5. Panic Value INR > 5.0 White Blood Count 11.88 x10e3/uL # H 4.8-10.8 07/08/2017 6:16am 2017 7:59am Red Blood Count 4.25 x10e6/uL 3.6-5.1 07/08/2017 6:16am 07/08/2017 7: 59am Hemoglobin 11.4 g/dL L 12.0-16.0 07/08/2017 6:16am 07/08/2017 7:59am Hematocrit 35.1 % 34.2-44.1 07/08/2017 6:16am 07/08/2017 7:59am Mean Corpuscular Volume 82.6 fL 81-99 07/08/2017 6:07/08/2017 7: 59am Mean Corpuscular Hemoglobin 26.8 pg L 28-32 07/08/2017 6:2017 7:59am Mean Corpuscular Hemoglobin Concent 32.5 g/dL 31-35 07/08/2017 6:07/08/2017 7:59am Red Cell Distribution Width 14.3 % 11.7-14.4 07/08/2017 6:2017 7:59am Platelet Count 251 x10e3/uL 140-360 07/08/2017 6:07/08/2017 7: 59am Neutrophils (%) (Auto) 74.2 % 38.7-80.0 07/08/2017 6:07/08/2017 7: 59am Lymphocytes (%) (Auto) 19.7 % 18.0-39.1 07/08/2017 6:07/08/2017 7: 59am Monocytes (%) (Auto) 5.2 % 4.4-11.3 07/08/2017 6:07/08/2017 7: 59am Eosinophils (%) (Auto) 0.3 % 0.0-6.0 07/08/2017 6:07/08/2017 7: 59am Basophils (%) (Auto) 0.3 % 0.0-1.0 07/08/2017 6:07/08/2017 7:59am IM GRANULOCYTES % 0.3 % 0.0-1.0 07/08/2017 6:07/08/2017 7:59am Neutrophils # (Auto) 8.8 H 2.1-6.9 07/08/2017 6:07/08/2017 7: 59am Lymphocytes # (Auto) 2.3 1.0-3.2 07/08/2017 6:07/08/2017 7:59am Monocytes # (Auto) 0.6 0.2-0.8 07/08/2017 6:07/08/2017 7:59am Eosinophils # (Auto) 0.0 0.0-0.4 07/08/2017 6:07/08/2017 7:59am Basophils # (Auto) 0.0 0.0-0.1 07/08/2017 6:16am 07/08/2017 7:59am Absolute Immature Granulocyte (auto 0.03 x10e3/uL 0-0.1 07/08/2017 6: 16am 07/08/2017 7:59am Urine Color YELLOW YELLOW 07/05/2017 3:16pm 07/05/2017 3:29pm Urine Clarity HAZY CLEAR 07/05/2017 3:16pm 07/05/2017 3:29pm Urine Specific [place] 1.020 1.010-1.025 07/05/2017 3:16pm 2017 3:29pm Urine pH 7 5 - 7 07/05/2017 3:16pm 07/05/2017 3:29pm Urine Leukocyte Esterase 1+ H NEGATIVE 07/05/2017 3:16pm 07/05/2017 3: 29pm Urine Nitrite POSITIVE H NEGATIVE 07/05/2017 3:16pm 07/05/2017 3:29pm Urine Protein NEGATIVE NEGATIVE 07/05/2017 3:16pm 07/05/2017 3:29pm Urine Glucose (UA) NEGATIVE NEGATIVE 07/05/2017 3:16pm 07/05/2017 3: 29pm Urine Ketones NEGATIVE NEGATIVE 07/05/2017 3:16pm 07/05/2017 3:29pm Urine Urobilinogen 0.2 mg/dL 0.2 - 1 07/05/2017 3:16pm 07/05/2017 3: 29pm Urine Bilirubin NEGATIVE NEGATIVE 07/05/2017 3:16pm 07/05/2017 3: 29pm Urine Blood 1+ H NEGATIVE 07/05/2017 3:16pm 07/05/2017 3:29pm Urine WBC 6-10 /HPF H 0-5 07/05/2017 3:16pm 07/05/2017 3:41pm Urine RBC 0-5 /HPF 0-5 07/05/2017 3:16pm 07/05/2017 3:41pm Urine Bacteria MANY /HPF H NONE 07/05/2017 3:16pm 07/05/2017 3:41pm Urine Epithelial Cells FEW /LPF NONE 07/05/2017 3:16pm 07/05/2017 3: 41pm Urine Mucus FEW H RARE 07/05/2017 3:16pm 07/05/2017 3:41pm Urine Test NEGATIVE NEGATIVE 07/04/2017 10:45pm 07/04/2017 11:20pm Sodium Level 136 mmol/L 136-145 07/08/2017 6:1607/08/2017 8:14am Potassium Level 3.5 mmol/L 3.5-5.1 07/08/2017 6:1607/08/2017 8:14am Chloride Level 102 mmol/L 98-107 07/08/2017 6:1607/08/2017 8:14am Carbon Dioxide Level 26 mmol/L 22-29 07/08/2017 6:1607/08/2017 8: 14am Anion Gap 11.5 mmol/L 8-16 07/08/2017 6:1607/08/2017 8:14am Blood Urea Nitrogen 8 mg/dL 7-07/08/2017 6:1607/08/2017 8:14am Creatinine 0.66 mg/dL 0.57-1.11 07/08/2017 6:1607/08/2017 8:14am BUN/Creatinine Ratio 12 6-25 07/08/2017 6:1607/08/2017 8:14am Estimat Glomerular Filtration Rate > 60 ML/MIN 60- 07/08/2017 6:16 8:14am Ranges were taken from the National Kidney Disease Education Program and the National Kidney Foundation literature. Reference ranges: 60 or greater: Normal 16-59 (for 3 consecutive months): Chronic kidney disease 15 or less: Kidney failure Glucose Level 95 mg/dL 74-118 07/08/2017 6:1607/08/2017 8:14am Calcium Level 8.3 mg/dL L 8.4-10.2 07/08/2017 6:1607/08/2017 8:14am Total Bilirubin 0.6 mg/dL 0.2-1.2 07/06/2017 6:07/06/2017 7:16am Aspartate Amino Transf (AST/SGOT) 15 IU/L 5-34 07/06/2017 6:022017 7:16am Alanine Aminotransferase (ALT/SGPT) 10 IU/L 0-55 07/06/2017 6:0201/2018 7:16am Total Protein 6.5 g/dL # 6.5-8.1 07/06/2017 6:02am 07/06/2017 7:16am Albumin 3.0 g/dL # L 3.5-5.0 07/06/2017 6:02am 07/06/2017 7:16am Globulin 3.5 g/dL 2.3-3.5 07/06/2017 6:02am 07/06/2017 7:16am Albumin/Globulin Ratio 0.9 0.8-2.0 07/06/2017 6:02am 07/06/2017 7: 16am Alkaline Phosphatase 68 IU/L 40-150 07/06/2017 6:02am 07/06/2017 7: 16am Microbiology Results Procedure Source Organism/Result Collection Date/Time Result Date/Time Result Status Blood Culture Blood NO GROWTH AFTER 5 DAYS, FINAL REPORT 02/03/2017 2:21pm 02/08/2017 2:39pm Final Urine Culture Urine,Clean Catch STREPTOCOCCUS VIRIDANS 07/04/2017 10:45pm 07/06/2017 11:08am Final Urine Culture Urine,Catheterized ESCHERICHIA COLI 07/05/2017 3:16pm 2017 8:22am Final Procedures Procedure Status Date Provider(s) DRAINAGE OF LEFT KIDNEY PELVIS WITH DRAIN DEV, PERC APPROACH Completed PENNY HENDRICKSON MD DILATION OF LEFT URETER WITH INTRALUM DEV, PERC APPROACH Completed 10/17/16 PENNY HENDRICKSON MD CYSTO/URETERO W/LITHOTRIPSY Completed 11/03/16 PENNY HENDRICKSON MD CYSTO/URETERO W/LITHOTRIPSY Completed 12/04/16 PENNY HENDRICKSON MD CYSTO/URETERO W/LITHOTRIPSY Completed 01/01/17 PENNY HENDRICKSON MD CYSTO/URETERO W/LITHOTRIPSY Completed 01/31/17 PENNY HENDRICKSON MD Cystoscopy with retrograde pyelography Active 07/06/17 PENNY HENDRICKSON MD Cystoscopy with retrograde pyelography Completed 07/07/17 PENNY HENDRICKSON MD Ureter stent placement Completed 07/07/[address] of abdomen and pelvis without contrast Active 10/16/16 FUNMI FLOREZ MD Echo guide for biopsy Active 10/17/16 J[address] of abdomen and pelvis without contrast Active 02/03/17 JOSÉ ANTONIO BREWSTER MD CT of abdomen and pelvis without contrast Active 07/04/17 NELL HOWARD MD Encounters Encounter Location Arrival/Admit Date Discharge/Depart Date Attending Provider Discharged Inpatient [facility] 07/05/17 12:42am 1:25pm CORY BROWN MD Registered Clinic [facility] 04/30/17 3:27pm PENNY HENDRICKSON MD Registered Surgical Day Care [facility] 03/30/17 5:17am PENNY HENDRICKSON MD Registered Surgical Day Care [facility] 03/16/17 5:13am PENNY HENDRICKSON MD Discharged Inpatient [facility] 02/03/17 5:07pm 02/06/17 7:52pm JUAN A FINE MD Registered Surgical Day Care [facility] 01/31/17 12:31pm PENNY HENDRICKSON MD Registered Surgical Day Care [facility] 01/01/17 5:18am PENNY HENDRICKSON MD Registered Surgical Day Care [facility] 12/04/16 5:15am PENNY HENDRICKSON MD Registered Surgical Day Care [facility] 11/03/16 5:48am PENNY HENDRICKSON MD Departed Emergency Room [facility] 10/31/16 1:08pm 7:41pm FANNY LARIOS MD Discharged Inpatient [facility] [place] 10/16/16 11:51pm 5:39pm JUAN A FINE MD
--- NOTE | 2017-07-27 09:27 | Diagnostic Imaging Report ---
PROCEDURE:X-RAY ABDOMEN - KUB COMPARISON:[facility], DX, ABDOMEN-1VIEW (KUB), 07/05/2017, 14:40. INDICATIONS:PRE-OP, RENAL STONE FINDINGS: Multiple stones overlie the left kidney with the largest measuring 1.8 cm; this conglomerate measurement may represent multiple stones together. Several stones overlie the right kidney. Stone overlying the expected location of the right UVJ identified on the previous study not seen on this study. There are no dilated loops of bowel to suggest obstruction. There are no masses. There is no evidence of free air. No acute osseous abnormalities are present. Sclerotic portion of the left iliac bone adjacent to the SI joint has a benign appearance and is consistent with osteitis ilei. CONCLUSION: Multiple renal stones. Norm Olivarez D.O. Dictated by: Norm Olivarez D.O. on 07/27/2017 at 9:27 Electronically approved by: Norm Olivarez D.O. on 07/27/2017 at 9:27
--- NOTE | 2017-07-27 09:50 | Operative Report ---
DATE OF PROCEDURE: July 27, 2017 PREOPERATIVE DIAGNOSIS: Left kidney stone. POSTOPERATIVE DIAGNOSIS: Left kidney stone. PROCEDURES: 1. Staged shockwave lithotripsy. 2. Supervision of fluoroscopy. ANESTHESIA: General. ESTIMATED BLOOD LOSS: Minimal. COMPLICATIONS: None. INDICATIONS: Ms. 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 She has a 10 x 8 mm cluster in left mid pole and a 6 x 8 mm cluster in the left lower pole. She and I had a long discussion regarding the alternatives, risks and benefits, elected to proceed with shockwave lithotripsy. She refuses a stent. PROCEDURE IN DETAIL: After informed consent was obtained, the patient was taken to the operative suite. She was placed supine on the operating table. She underwent general anesthesia by the anesthesia services. She was placed in supine position on lithotripsy table. The stone was localized in the X, Y, and Z planes. A total of 3000 shocks at a maximum power setting of 6 delivered to the stone. The patient tolerated the procedure well and was transported to the recovery room in excellent condition. SUPERVISION OF FLUOROSCOPY: I was present throughout the entire procedure and I supervised the use of fluoroscopy for the treatment part. Job#: [id number]
== END | disposition home or self-care (01) ==
LOC: OR 05:24
PROVIDERS: ATTEND Urology
DX: N20.0 Calculus of kidney (principal); N20.1 Calculus of ureter; N13.30 Unspecified hydronephrosis; N39.0 Urinary tract infection, site not specified; T19.1XXA Foreign body in bladder, initial encounter; Z68.35 Body mass index [BMI] 35.0-35.9, adult; Z87.891 Personal history of nicotine dependence; Z84.1 Family history of disorders of kidney and ureter
CPT/HCPCS: 50590; 74018; 81025; J0696; J1100; J1885; J2001; J2175; J2250; J2405

== ENCOUNTER → 2017-10-29 | Outpatient (CLI) | payer OTHER ==
[~2017-10-29] MED LIST changes: -CEFTRIAXONE SOD 1 GM VIAL ONE; -DEXAMETHASONE SOD PHOS INJ 4 MG/ML VIAL ONE; -FENTANYL CITRATE/PF 100MCG/2 ML INJ ONE; -KETOROLAC TROMETHAMINE 30 MG/ML VIAL ONE; -LIDOCAINE HCL 2% LOCAL INJ 5 ML SDV VIAL INJ ONE; -MEPERIDINE HCL INJ 50 MG/ML INJ ONE; -MIDAZOLAM HCL 2 MG/2 ML VIAL ONE; -ONDANSETRON HCL INJ 2 MG/ML VIAL ONE; -PROPOFOL IV EMULSION 10 MG/ML 20 ML VIAL ONE; -SEVOFLURANE INHAL SOLN 250 ML PEN BTL ONE
--- NOTE | 2017-10-30 07:39 | Diagnostic Imaging Report ---
PROCEDURE:X-RAY ABDOMEN - KUB COMPARISON:KUB 07/27/2017. 07/05/2017. CT abdomen pelvis 07/04/2017. INDICATIONS:CALCULUS OF KIDNEY FINDINGS: There are no dilated loops of bowel to suggest obstruction. There are no abnormal masses. There is no evidence of free air. No acute osseous abnormalities are present. Sclerotic portion the left iliac bone remain stable and benign appearance and is consistent with condensans osteitis ilei. Right upper quadrant cholecystectomy clips. Cluster of stones overlying the right kidney appears increased compared to prior exam. Previous 3 cluster of stones in the left kidney are not 2 clusters. 1.0 cm in the left renal pelvis remain present but appears to be slightly more prominent. Previous collection in the left interpolar region and the inferior pole appears to conglomerated into a single collection. CONCLUSION: 1. Slight increase cluster of stones overlying the right kidney. 2. The previous 3 cluster of stones in the left kidney appears to have clustered into 2 sets of clusters. Dictated by: Luis Crespo M.D. on 10/29/2017 at 17:32 Electronically approved by: Luis Crespo M.D. on 10/29/2017 at 17:32
== END ==
LOC: RAD 15:56
PROVIDERS: ATTEND Urology
DX: N20.0 Calculus of kidney (principal)
CPT/HCPCS: 74018; 81025

== ENCOUNTER 2017-11-21 19:35 | Observation (INO) | payer OTHER ==
[~2017-11-21] VITALS: Ht 152.4 cm; Wt 82.6 kg
[~2017-11-21 19:35] MED LIST changes: -CEFTRIAXONE SOD 1 GM VIAL ONE; -DEXAMETHASONE SOD PHOS INJ 4 MG/ML VIAL ONE; -FENTANYL CITRATE/PF 100MCG/2 ML INJ ONE; -HYDROMORPHONE 1MG/1ML INJ ONE; -IOPAMIDOL 610MG/1ML 300 MG/ML VIAL IV ONE; -LIDOCAINE HCL 2% LOCAL INJ 5 ML SDV VIAL INJ ONE; -MIDAZOLAM HCL 2 MG/2 ML VIAL ONE; -MORPHINE SULFATE 2 MG/ML SYR ONE; -ONDANSETRON HCL INJ 2 MG/ML VIAL ONE; -PROMETHAZINE HC25 M1 PO; -PROPOFOL IV EMULSION 10 MG/ML 20 ML VIAL ONE; -SEVOFLURANE INHAL SOLN 250 ML PEN BTL ONE
[2017-11-21 20:13] LABS: BASOPHILS % 0.2 % (0.0-1.0); HEMATOCRIT 35.3 % (34.2-44.1); HEMOGLOBIN 11.9 g/dL (12.0-16.0); LYMPHOCYTES # (AUTO) 0.7 (1.0-3.2); LYMPHOCYTES % 6.1 % (18.0-39.1); MEAN CORPUSCULAR HGB CONC 33.7 g/dL (31-35); MEAN CORPUSCULAR VOLUME 80.2 fL (81-99); MONOCYTES # (AUTO) 0.1 (0.2-0.8); MONOCYTES % 0.5 % (4.4-11.3); NEUTROPHILS # (AUTO) 10.1 (2.1-6.9); NEUTROPHILS % 92.8 % (38.7-80.0); PLATELET COUNT 244 x10e3/uL (140-360); RED CELL DISTRIBUTION WIDTH 13.6 % (11.7-14.4)
[2017-11-21] MEDS ORDERED: KETOROLAC TROMETHAMINE 30 MG/ML VIAL IV STA (20:18)
[2017-11-21 20:21] LABS: BILIRUBIN,URINE NEGATIVE (NEGATIVE); CLARITY,URINE CLOUDY (CLEAR); COLOR,URINE RED (YELLOW); KETONES,URINE NEGATIVE (NEGATIVE); LEUKOCYTE ESTERASE ,URINE 1+ (NEGATIVE); NITRITE,URINE POSITIVE (NEGATIVE); PROTEIN,URINE DIPSTICK 2+ (NEGATIVE); URINE UROBILINOGEN 0.2 mg/dL (0.2 - 1)
[2017-11-21 20:22] LABS: BACTERIA,URINE MODERATE /HPF; EPITHELIAL CELLS,URINE RARE /LPF; RBC,URINE >50 /HPF (0-5); WBC,URINE (MAN) 21-50 /HPF (0-5)
[2017-11-21 20:28] LABS: ANION GAP 15.1 mmol/L (8-16); BLOOD UREA NITROGEN 16 mg/dL (7-26); BUN/CREATININE RATIO 19 (6-25); CARBON DIOXIDE 25 mmol/L (22-29); CHLORIDE 103 mmol/L (98-107); CREATININE, SERUM 0.86 mg/dL (0.57-1.11); EST GLOMERULAR FILTRATION RATE > 60 ML/MIN (60-); GLUCOSE 146 mg/dL (74-118); POTASSIUM 4.1 mmol/L (3.5-5.1); SODIUM 139 mmol/L (136-145)
[2017-11-21] MEDS ORDERED: GENTAMICIN 120MG/NS 100ML 100 ML IV STA (20:43)
[2017-11-21] MEDS: SODIUM CHLORIDE 0.9% 1000ML 1,000 ML IV SCH (21:14)
[2017-11-21] MEDS: ONDANSETRON HCL INJ 2 MG/ML VIAL IV PRN (21:15)
[2017-11-21] MEDS: HYDROMORPHONE 1MG/1ML INJ IV PRN (21:15)
[2017-11-21] MEDS: GENTAMICIN 80MG/NS 100 ML 100 ML IV SCH (21:15)
[2017-11-21 21:28] VITALS: BP 112/76
[2017-11-21 22:00] VITALS: BP 112/76
[2017-11-21] MEDS ORDERED: GENTAMICIN 80MG/NS 100 ML 100 ML IV SCH (22:00)
[2017-11-22] VITALS (8 sets, daily range): BP systolic 85–106; BP diastolic 58–73
[2017-11-22] MEDS: SODIUM CHLORIDE 0.9% 1000ML 1,000 ML IV SCH ×3 (04:18→22:02)
[2017-11-22] MEDS: HYDROMORPHONE 1MG/1ML INJ IV PRN ×3 (04:18→18:26)
[2017-11-22] MEDS: ONDANSETRON HCL INJ 2 MG/ML VIAL IV PRN (04:19)
[2017-11-22] MEDS: GENTAMICIN 80MG/NS 100 ML 100 ML IV SCH ×3 (06:08→22:02)
[2017-11-22 06:15] LABS: BASOPHILS % 0.2 % (0.0-1.0); HEMATOCRIT 33.2 % (34.2-44.1); HEMOGLOBIN 10.9 g/dL (12.0-16.0); LYMPHOCYTES # (AUTO) 1.3 (1.0-3.2); LYMPHOCYTES % 12.5 % (18.0-39.1); MEAN CORPUSCULAR HEMOGLOBIN 27.3 pg (28-32); MEAN CORPUSCULAR HGB CONC 32.8 g/dL (31-35); MONOCYTES # (AUTO) 0.4 (0.2-0.8); NEUTROPHILS # (AUTO) 8.9 (2.1-6.9); PLATELET COUNT 225 x10e3/uL (140-360); RED CELL DISTRIBUTION WIDTH 13.6 % (11.7-14.4)
[2017-11-22 06:43] LABS: ALANINE AMINOTRANSFERASE 10 IU/L (0-55); ALBUMIN 3.2 g/dL (3.5-5.0); ALBUMIN/GLOBULIN RATIO 0.9 (0.8-2.0); ALKALINE PHOSPHATASE 83 IU/L (40-150); ANION GAP 11.1 mmol/L (8-16); BLOOD UREA NITROGEN 15 mg/dL (7-26); BUN/CREATININE RATIO 21 (6-25); CALCIUM 8.3 mg/dL (8.4-10.2); CARBON DIOXIDE 26 mmol/L (22-29); CHLORIDE 105 mmol/L (98-107); CREATININE, SERUM 0.72 mg/dL (0.57-1.11); EST GLOMERULAR FILTRATION RATE > 60 ML/MIN (60-); GLUCOSE 121 mg/dL (74-118); POTASSIUM 4.1 mmol/L (3.5-5.1); SODIUM 138 mmol/L (136-145)
[2017-11-22] MEDS ORDERED: IOPAMIDOL 300MG/ML 100 ML INFUS..BTL IV ONE (09:52)
--- NOTE | 2017-11-22 10:09 | History and Physical ---
PCP: Dr. Corazon Shin CHIEF COMPLAINT: Right flank pain. HISTORY: This is a 37-year-old female with complication of kidney stone with previous obstruction. The patient is status post lithotripsy. Apparently, she came in with worsening right flank pain and significant urinary tract infection. The patient also has a low-grade temperature as well. Pain is uncontrolled. Patient placed in observation for pain control. PAST MEDICAL HISTORY: Recurrent kidney stone with previous stent that was removed, status post lithotripsy. PAST SURGICAL HISTORY: Stone management. SOCIAL HISTORY: Patient does not smoke or use alcohol. No regular drugs. ALLERGIES: NO KNOWN ALLERGIES. HOME MEDICATIONS: List reviewed. REVIEW OF SYSTEMS: Right flank tenderness and pain. PHYSICAL EXAMINATION VITAL SIGNS: Temperature is 99, blood pressure 101/58, pulse rate 62, respirations 20. GENERAL: The patient is not in acute distress. He is awake. HEENT: Normocephalic, atraumatic and anicteric. NECK: Supple grossly. PULMONARY: Diminished breath sounds. CARDIOVASCULAR: Regular rate and rhythm. ABDOMEN: Soft. Tenderness with CVA tenderness, right. EXTREMITIES: No cyanosis or edema. NEUROLOGICAL: No focal deficit. LABORATORY: Sodium 138, potassium 4.1, chloride 105, bicarb 26, BUN 15, creatinine 0.7, glucose 121. WBC 10.7, hemoglobin 10.9, hematocrit 33, and platelets 225,000. Urinalysis with significant for glycosuria and positive nitrite. Positive leukocyte esterase and wbcs greater than 50. IMPRESSION 1. Complicated urinary tract infection associated with kidney stone. 2. Intractable right flank tenderness. 3. Status post stone management. PLAN: Clear liquid diet. Antibiotics. Continue with current pain control and IV fluids. Check urine culture. The patient is in observation for now. Job#: [id number] [place]
--- NOTE | 2017-11-22 11:29 | Diagnostic Imaging Report ---
PROCEDURE: INTRAVENOUS PYELOGRAM (IVP) COMPARISON: Retrograde pyelogram 11/21/2017, CT abdomen and pelvis without contrast 07/05/2017. INDICATIONS: RIGHT FLANK PAIN TECHNIQUE: A floor installer film was obtained demonstrating a nonobstructive gas pattern. Multiple calcifications are again identified projecting over both renal shadows. After intravenous administration of 100 cc of omnipaque 300, multiple frontal and oblique images of the abdomen and pelvis were obtained with and without compression. Post void images were also obtained. FINDINGS: KIDNEYS: Renal position, contours, and sizes are normal. There is prompt bilateral excretion of contrast. 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 The upper moiety renal pelvis is unremarkable. There is mild hydronephrosis of the lower pole moiety related to a cluster of calcifications at the lower pole infundibulum measuring approximately 9 mm in aggregate dimension. There is delayed contrast opacification of a circular structure in the upper pole of the right kidney, likely reflective of a calyceal diverticulum. No right hydronephrosis. URETERS: Both ureters are fully visualized in their course to the bladder with normal course and caliber. No evidence of irregularity or filling defect. BLADDER: No significant post void residual. 2 small filling defects on the postvoid image may reflect small clots related to recent endoscopic procedure. 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 CONCLUSION: Multiple bilateral renal calculi. No right hydronephrosis or ureteral filling defect. 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 Dictated by: Hilario Fuller M.D. on 11/22/2017 at 11:33 Electronically approved by: Hilario Fuller M.D. on 11/22/2017 at 11:33
[2017-11-23] MEDS: HYDROMORPHONE 1MG/1ML INJ IV PRN ×2 (04:12→12:46)
[2017-11-23] MEDS: ONDANSETRON HCL INJ 2 MG/ML VIAL IV PRN ×2 (04:12→12:46)
[2017-11-23 04:38] VITALS: BP 108/63
[2017-11-23] MEDS: GENTAMICIN 80MG/NS 100 ML 100 ML IV SCH ×2 (05:33→14:44)
[2017-11-23] MEDS: SODIUM CHLORIDE 0.9% 1000ML 1,000 ML IV SCH ×2 (05:33→14:44)
[2017-11-23 06:31] LABS: BASOPHILS % 0.5 % (0.0-1.0); EOSINOPHILS # (AUTO) 0.1 (0.0-0.4); EOSINOPHILS % 1.2 % (0.0-6.0); HEMATOCRIT 30.5 % (34.2-44.1); HEMOGLOBIN 9.8 g/dL (12.0-16.0); LYMPHOCYTES # (AUTO) 2.8 (1.0-3.2); LYMPHOCYTES % 43.6 % (18.0-39.1); MEAN CORPUSCULAR HEMOGLOBIN 26.8 pg (28-32); MEAN CORPUSCULAR HGB CONC 32.1 g/dL (31-35); MEAN CORPUSCULAR VOLUME 83.3 fL (81-99); MONOCYTES # (AUTO) 0.3 (0.2-0.8); MONOCYTES % 5.3 % (4.4-11.3); NEUTROPHILS # (AUTO) 3.2 (2.1-6.9); NEUTROPHILS % 48.9 % (38.7-80.0); PLATELET COUNT 208 x10e3/uL (140-360); RED BLOOD COUNT 3.66 x10e6/uL (3.6-5.1); RED CELL DISTRIBUTION WIDTH 13.9 % (11.7-14.4)
[2017-11-23 06:49] LABS: ANION GAP 9.7 mmol/L (8-16); BLOOD UREA NITROGEN 11 mg/dL (7-26); BUN/CREATININE RATIO 17 (6-25); CALCIUM 7.7 mg/dL (8.4-10.2); CARBON DIOXIDE 25 mmol/L (22-29); CHLORIDE 108 mmol/L (98-107); CREATININE, SERUM 0.66 mg/dL (0.57-1.11); EST GLOMERULAR FILTRATION RATE > 60 ML/MIN (60-); GLUCOSE 94 mg/dL (74-118); POTASSIUM 3.7 mmol/L (3.5-5.1); SODIUM 139 mmol/L (136-145)
[2017-11-23] MEDS ORDERED: ACETAMINOPHEN/CODEINE 300MG - 30MG TAB PO PRN (08:00)
[2017-11-23 08:05] VITALS: BP 102/76
[2017-11-23 08:45] VITALS: BP 102/76
[2017-11-23 12:08] VITALS: BP 95/71
[2017-11-23 16:11] VITALS: BP 116/73
[2017-11-23] MEDS ORDERED: TYLENOL WITH C1 EACH PO (16:28)
[2017-11-23] MEDS ORDERED: PROMETHAZINE HC25 M1 PO (16:29)
== END 2017-11-23 17:33 | disposition home or self-care (01) ==
LOC: ER 19:35 → ERHOLD 20:57 → INTOOBSV 20:57 → MED/SURG3 21:31 → MED/SURG2 21:36 → MED/SURG3 21:40 → MED/SURG2 22:01
PROVIDERS: ADMIT Internal Medicine; ATTEND Internal Medicine
DX: N30.01 Acute cystitis with hematuria (principal); R11.2 Nausea with vomiting, unspecified; Z87.442 Personal history of urinary calculi; N20.0 Calculus of kidney; D64.9 Anemia, unspecified; B95.4 Other streptococcus as the cause of diseases classified elsewhere
CPT/HCPCS: 36415; 74400; 80048; 80053; 81001; 82948; 85025; 87086; 96367; 96376; 99284; G0378; J1170; J1580; J1885; J2405; J7030; Q9967

== ENCOUNTER → 2017-11-21 | Day surgery (SDC) | payer OTHER ==
[~2017-11-21] MED LIST changes: +CEFTRIAXONE SOD 1 GM VIAL ONE; +DEXAMETHASONE SOD PHOS INJ 4 MG/ML VIAL ONE; +FENTANYL CITRATE/PF 100MCG/2 ML INJ ONE; +HYDROMORPHONE 1MG/1ML INJ ONE; +IOPAMIDOL 610MG/1ML 300 MG/ML VIAL IV ONE; +LIDOCAINE HCL 2% LOCAL INJ 5 ML SDV VIAL INJ ONE; +MIDAZOLAM HCL 2 MG/2 ML VIAL ONE; +MORPHINE SULFATE 2 MG/ML SYR ONE; +ONDANSETRON HCL INJ 2 MG/ML VIAL ONE; +PROMETHAZINE HC25 M1 PO; +PROPOFOL IV EMULSION 10 MG/ML 20 ML VIAL ONE; +SEVOFLURANE INHAL SOLN 250 ML PEN BTL ONE
--- NOTE | 2017-11-21 16:29 | Operative Report ---
DATE OF PROCEDURE: November 21, 2017 PREOPERATIVE DIAGNOSIS: Right kidney stone. POSTOPERATIVE DIAGNOSES: 1. Right kidney stone. 2. Stenotic infundibulum. PROCEDURES 1. Right-sided ureteroscopy. 2. Supervision of fluoroscopy. 3. Interpretation of retrograde pyelography. ANESTHESIA: General. ESTIMATED BLOOD LOSS: Minimal. COMPLICATIONS: None. INDICATION FOR PROCEDURE: Mrs. Buitrago is a 37-year-old female who has failed lithotripsy and now presents for right-sided ureteroscopy. She voiced understanding of the options, the alternatives, the risks, and the benefits, and she elected to proceed. PROCEDURE IN DETAIL: After informed consent was obtained, the patient was taken to the operating suite. She was placed in supine position on the operating table. She underwent general anesthesia by the anesthesia service. She was placed in dorsal lithotomy position, sterilely prepped and draped in a standard fashion for cystoscopy. A 22.5-Irish cystoscope was inserted per urethra and no masses noted. Panendoscopy of the bladder revealed no tumors and no stones. Both ureteral orifices were in their normal anatomic location and position with clear efflux seen. The right ureteral orifice was catheterized, was dilated and a 2nd safety wire was introduced. Flexible ureteroscope was inserted to the level of the renal pelvis. The stone was seen in the mid to lower pole . A retrograde pyelogram was performed through the ureteroscope as I could not navigate into this. There was a very small pinpoint lesion where the contrast was spilling from despite attempts to catheterize this even with a guidewire I could not catheterize the stenotic infundibulum from the middle pole [place] where the stone was located. With no access to the stone, this explained why lithotripsy would fail. I did not place a stent. The patient's bladder was drained and the patient was awakened from anesthesia, and transported to recovery room in excellent condition with no untoward effects noted. Job#: [id number]
== END | disposition home or self-care (01) ==
LOC: OR 12:02
PROVIDERS: ATTEND Urology
DX: N20.0 Calculus of kidney (principal); N28.89 Other specified disorders of kidney and ureter
CPT/HCPCS: 52351; 74420; 81025; C1758; C1766; J0696; J1100; J1170; J2001; J2250; J2270; J2405; Q9967

== ENCOUNTER → 2018-02-01 | Outpatient (CLI) | payer OTHER ==
[~2018-02-01] MED LIST changes: +PROMETHAZINE HC25 M1 PO
== END ==
LOC: MAMMO 16:34
PROVIDERS: ATTEND Internal Medicine
DX: Z12.31 Encounter for screening mammogram for malignant neoplasm of breast (principal)
CPT/HCPCS: 77067

== ENCOUNTER → 2018-06-28 | Outpatient (CLI) | payer OTHER ==
--- NOTE | 2018-06-28 18:29 | Diagnostic Imaging Report ---
EXAM: ABDOMEN-1VIEW (KUB) DATE: 06/28/2018 5:12 PM INDICATION: Stones COMPARISON: None FINDINGS: Cholecystectomy clips. Bowel gas pattern nonobstructive. Stool obscures right kidney. 2 separate 12 mm calcifications overlie the inferior left kidney. IMPRESSION: Left nephrolithiasis. Signed by: Dr. Franklin Khan MD on 06/28/2018 6:26 PM
== END ==
LOC: RAD 17:02
PROVIDERS: ATTEND Urology
DX: N20.0 Calculus of kidney (principal)
CPT/HCPCS: 74018; 81025

== ENCOUNTER → 2019-01-06 | Outpatient (CLI) | payer OTHER ==
--- NOTE | 2019-01-06 19:55 | Diagnostic Imaging Report ---
EXAM: ABDOMEN-1VIEW (KUB) DATE: 01/06/2019 4:48 PM INDICATION: ^[id number] COMPARISON: KUB, 06/28/2018 FINDINGS: 2 supine views of the abdomen were obtained. Calcifications are projected over both kidneys. The largest on the right measures 1.5 cm and is near the renal pelvis. 3 other calculi are projected more peripherally at the level of the right kidney measuring 0.8 cm, 1.0 cm and 0.5 cm. Calcifications projected on the left kidney measure 1.2 cm, 1.2 cm and 0.6 cm. No specific abnormal calcifications are projected at the pelvis. There is a sclerotic focus in the left iliac bone adjacent to the SI joint, unchanged. Cholecystectomy clips are again noted. There is no bowel dilatation or evidence for obstruction. No acute bony abnormality. IMPRESSION: Apparent bilateral renal calculi are again seen. Calculi on the right may be slightly larger than on the last exam, but may have been obscured on the previous exam by overlying bowel. Signed by: Dr. Easton Lozano M.D. on 01/06/2019 7:51 PM
== END ==
LOC: RAD 16:34
PROVIDERS: ATTEND Urology
DX: N20.0 Calculus of kidney (principal)
CPT/HCPCS: 74018

== ENCOUNTER → 2019-04-11 | Day surgery (SDC) | payer OTHER ==
[~2019-04-11] MED LIST changes: +CEFTRIAXONE500 MG PO; +DEXAMETHASONE SOD PHOS INJ 4 MG/ML VIAL ONE; +FENTANYL CITRATE/PF 100MCG/2 ML INJ ONE; +GENTAMICIN 120MG/NS 100ML 100 ML ONE; +IOPAMIDOL 300MG/ML 50ML INFUS..BTL IV ONE; +LIDOCAINE HCL 2% LOCAL INJ 5 ML SDV VIAL INJ ONE; +MEPERIDINE HCL INJ 25 MG/ML VIAL ONE; +MIDAZOLAM HCL 2 MG/2 ML VIAL ONE; +ONDANSETRON HCL INJ 2MG/ML 2ML 2 MG/ML VIAL ONE; +PROPOFOL IV EMULSION 10 MG/ML 20 ML VIAL ONE; +SEVOFLURANE INHAL SOLN 250 ML PEN BTL ONE
[2019-04-11 10:11] VITALS: BP 100/60
--- NOTE | 2019-04-16 15:15 | Operative Report ---
DATE OF PROCEDURE: 04/11/2019 SURGEON: All Lo MD PREOPERATIVE DIAGNOSES: 1. Indwelling bilateral stents. 2. Bilateral renal calculi. 3. Right-sided ureteral calculi. PROCEDURES: 1. Cystourethroscopy with staged removal of left indwelling stent (entirely separate procedure for left ureteral stent). 2. Cysto Staged complicated removal of a right indwelling stent (entirely separate procedure for staged fashion for removal of RIGHT ureteral stent). 3. Staged right-sided ureteroscopy with laser lithotripsy (entirely staged procedure for right renal calculi). 4. Staged right-sided ureteroscopy with stone extraction (entirely separate procedure for right ureteral calculi). 5. Staged left-sided shock wave lithotripsy (separate procedure for diagnosis of left renal calculi). 6. Supervision of fluoroscopy. 7. Interpretation of retrograde pyelography. ANESTHESIA: General. ESTIMATED BLOOD LOSS: Minimal. COMPLICATIONS: None. INDICATIONS FOR PROCEDURE: Ms. Buitrago is a 38-year-old female with bilateral large calculi. She now presents for definitive staged management of these large obstructing stones. PROCEDURE IN DETAIL: After informed consent was obtained, the patient was taken to the operative suite, placed supine on the operating table. She underwent general anesthesia by Anesthesia Service, was placed in the dorsal lithotomy position, and sterilely prepped and draped for cystoscopy. A 21-Colombian cystoscope was inserted per urethra. Normal urethra was noted. Panendoscopy of the bladder reveals no tumors, no stones. Bilateral stents were extracted. Attempts were made to catheterize the stents and this failed secondary encrustation. A Guidewire was inserted under fluoroscopy and seen to coil in the renal pelvis under fluoroscopy. Attention was turned to the right ureter. Ureteroscope was advanced to the level of ureteral calculi, which were basket extracted and passed off the table as specimens. Flexible ureteroscope was advanced to the level of renal pelvis. Utilizing laser fiber, stones were obliterated in the fragments small enough to pass. At this time, the guidewire was removed from the right side. Attention was turned to the left side, where stones were localized in the X, Y, and Z planes. Treatment for lithotripsy was performed per the treatment report. The patient tolerated the procedure well and was transported to recovery room in excellent condition with no untoward effects noted. Supervision of fluoroscopy and interpretation of retrograde pyelography: I was present for the entire procedure and supervised the use of fluoroscopy. There was no radiologist present for ureteroscopic or stent removal portions. Retrograde pyelogram was performed through ureteroscope revealing interim removal of a large ureteral and renal calculi. MD GIANLUCA López/MODL /[id number] MTDGilma
== END | disposition home or self-care (01) ==
LOC: OR 05:44
PROVIDERS: ATTEND Urology
DX: R31.29 Other microscopic hematuria (principal); N20.0 Calculus of kidney; Z87.442 Personal history of urinary calculi; N39.0 Urinary tract infection, site not specified; R31.0 Gross hematuria; N13.1 Hydronephrosis with ureteral stricture, not elsewhere classified; R35.1 Nocturia; Z96.0 Presence of urogenital implants; Z01.812 Encounter for preprocedural laboratory examination
CPT/HCPCS: 50590; 52353; 81025; 88300; C1758; C1788; J1100; J1580; J2001; J2175; J2250; J2405; J2704; J3010; Q9967

== ENCOUNTER 2020-06-24 20:44 | Inpatient (IN) | payer OTHER ==
[~2020-06-24] VITALS: Ht 154.9 cm; Wt 83.9 kg
[~2020-06-24 20:44] MED LIST changes: -DEXAMETHASONE SOD PHOS INJ 4 MG/ML VIAL ONE; -FENTANYL CITRATE/PF 100MCG/2 ML INJ ONE; -GENTAMICIN 120MG/NS 100ML 100 ML ONE; -IOPAMIDOL 300MG/ML 50ML INFUS..BTL IV ONE; -LIDOCAINE HCL 2% LOCAL INJ 5 ML SDV VIAL INJ ONE; -MEPERIDINE HCL INJ 25 MG/ML VIAL ONE; -MIDAZOLAM HCL 2 MG/2 ML VIAL ONE; -ONDANSETRON HCL INJ 2MG/ML 2ML 2 MG/ML VIAL ONE; -PROPOFOL IV EMULSION 10 MG/ML 20 ML VIAL ONE; -SEVOFLURANE INHAL SOLN 250 ML PEN BTL ONE
[2020-06-24 21:42] LABS: BASOPHILS % 0.4 % (0.0-1.0); EOSINOPHILS # (AUTO) 0.2 (0.0-0.4); EOSINOPHILS % 2.6 % (0.0-6.0); HEMATOCRIT 37.2 % (34.2-44.1); HEMOGLOBIN 12.2 g/dL (12.0-16.0); LYMPHOCYTES # (AUTO) 2.5 (1.0-3.2); LYMPHOCYTES % 29.7 % (18.0-39.1); MEAN CORPUSCULAR HGB CONC 32.8 g/dL (31-35); MEAN CORPUSCULAR VOLUME 85.3 fL (81-99); MONOCYTES # (AUTO) 0.5 (0.2-0.8); MONOCYTES % 5.9 % (4.4-11.3); NEUTROPHILS # (AUTO) 5.2 (2.1-6.9); NEUTROPHILS % 60.9 % (38.7-80.0); PLATELET COUNT 226 x10e3/uL (140-360); RED BLOOD COUNT 4.36 x10e6/uL (3.6-5.1); RED CELL DISTRIBUTION WIDTH 13.2 % (11.7-14.4)
[2020-06-24 21:44] LABS: CLARITY,URINE SL CLOUDY (CLEAR); COLOR,URINE YELLOW (YELLOW); KETONES,URINE NEGATIVE (NEGATIVE); LEUKOCYTE ESTERASE ,URINE TRACE (NEGATIVE); NITRITE,URINE NEGATIVE (NEGATIVE); PREGNANCY TEST, URINE NEGATIVE (NEGATIVE); PROTEIN,URINE DIPSTICK NEGATIVE (NEGATIVE); URINE UROBILINOGEN 0.2 mg/dL (0.2 - 1)
[2020-06-24 21:55] LABS: RBC,URINE 0-5 /HPF (0-5)
[2020-06-24 21:56] LABS: AMORPHOUS SEDIMENT,URINE MANY (FEW); BACTERIA,URINE MODERATE /HPF; EPITHELIAL CELLS,URINE FEW /LPF
[2020-06-24] MEDS ORDERED: KETOROLAC TROMETHAMINE 30 MG/ML VIAL IV STA (22:04)
[2020-06-24 22:27] LABS: ALANINE AMINOTRANSFERASE 21 IU/L (0-55); ALBUMIN 3.7 g/dL (3.5-5.0); ALBUMIN/GLOBULIN RATIO 0.9 (0.8-2.0); ALKALINE PHOSPHATASE 78 IU/L (40-150); BLOOD UREA NITROGEN 17 mg/dL (7-26); BUN/CREATININE RATIO 20 (6-25); CALCIUM 8.8 mg/dL (8.4-10.2); CARBON DIOXIDE 26 mmol/L (22-29); CHLORIDE 103 mmol/L (98-107); CREATININE, SERUM 0.87 mg/dL (0.57-1.11); EST GLOMERULAR FILTRATION RATE > 60 ML/MIN (60-); GLUCOSE 91 mg/dL (74-118); SODIUM 140 mmol/L (136-145)
[2020-06-25] VITALS (8 sets, daily range): BP systolic 84–110; BP diastolic 54–72
[2020-06-25] MEDS: HYDROMORPHONE 1MG/1ML INJ IV PRN ×5 (00:59→19:28)
[2020-06-25] MEDS: CEFTRIAXONE SOD 1 GM/NS 50 ML 50 ML IV SCH (01:36)
[2020-06-25] MEDS: ONDANSETRON HCL INJ 2MG/ML 2ML 2 MG/ML VIAL IV PRN ×5 (01:40→17:39)
[2020-06-25] MEDS: SODIUM CHLORIDE 0.9% 1000ML 1,000 ML IV SCH ×3 (02:00→19:27)
[2020-06-25] MEDS ORDERED: KETOROLAC TROMETHAMINE 30 MG/ML VIAL IV PRN (08:30)
[2020-06-25] MEDS: CHOLECALCIFEROL 1,000 UNIT TAB PO SCH (08:59)
[2020-06-25] MEDS: FAMOTIDINE 20 MG TAB PO SCH (08:59)
[2020-06-25] MEDS: ZINC SULFATE 220 MG CAP PO SCH (08:59)
[2020-06-25] MEDS: SENNA-S TABLET PO SCH ×2 (08:59→17:38)
[2020-06-25] MEDS: ASCORBIC ACID 500 MG TAB PO SCH ×2 (08:59→17:38)
[2020-06-25] MEDS: METOCLOPRAMIDE HCL 10 MG/2ML VIAL IV PRN (14:48)
[2020-06-26] VITALS (8 sets, daily range): BP systolic 80–118; BP diastolic 52–64
[2020-06-26] MEDS: CEFTRIAXONE SOD 1 GM/NS 50 ML 50 ML IV SCH (00:06)
[2020-06-26] MEDS: ONDANSETRON HCL INJ 2MG/ML 2ML 2 MG/ML VIAL IV PRN ×3 (00:12→18:23)
[2020-06-26] MEDS: HYDROMORPHONE 1MG/1ML INJ IV PRN ×4 (00:12→18:23)
[2020-06-26] MEDS: METOCLOPRAMIDE HCL 10 MG/2ML VIAL IV PRN (03:44)
[2020-06-26] MEDS: SODIUM CHLORIDE 0.9% 1000ML 1,000 ML IV SCH ×2 (04:01→14:38)
[2020-06-26 06:30] LABS: BASOPHILS % 0.2 % (0.0-1.0); EOSINOPHILS # (AUTO) 0.2 (0.0-0.4); EOSINOPHILS % 1.7 % (0.0-6.0); HEMATOCRIT 33.2 % (34.2-44.1); HEMOGLOBIN 10.8 g/dL (12.0-16.0); LYMPHOCYTES # (AUTO) 1.7 (1.0-3.2); LYMPHOCYTES % 19.1 % (18.0-39.1); MEAN CORPUSCULAR HEMOGLOBIN 28.3 pg (28-32); MEAN CORPUSCULAR HGB CONC 32.5 g/dL (31-35); MEAN CORPUSCULAR VOLUME 87.1 fL (81-99); MONOCYTES # (AUTO) 0.5 (0.2-0.8); MONOCYTES % 5.6 % (4.4-11.3); NEUTROPHILS # (AUTO) 6.4 (2.1-6.9); NEUTROPHILS % 72.9 % (38.7-80.0); PLATELET COUNT 186 x10e3/uL (140-360); RED BLOOD COUNT 3.81 x10e6/uL (3.6-5.1); RED CELL DISTRIBUTION WIDTH 13.2 % (11.7-14.4)
[2020-06-26 07:16] LABS: ALANINE AMINOTRANSFERASE 26 IU/L (0-55); ALBUMIN 2.8 g/dL (3.5-5.0); ALBUMIN/GLOBULIN RATIO 0.9 (0.8-2.0); ALKALINE PHOSPHATASE 68 IU/L (40-150); ANION GAP 9.9 mmol/L (8-16); BLOOD UREA NITROGEN 9 mg/dL (7-26); BUN/CREATININE RATIO 12 (6-25); CALCIUM 7.4 mg/dL (8.4-10.2); CARBON DIOXIDE 24 mmol/L (22-29); CHLORIDE 104 mmol/L (98-107); CREATININE, SERUM 0.74 mg/dL (0.57-1.11); EST GLOMERULAR FILTRATION RATE > 60 ML/MIN (60-); GLUCOSE 97 mg/dL (74-118); POTASSIUM 3.9 mmol/L (3.5-5.1); SODIUM 134 mmol/L (136-145)
[2020-06-26] MEDS: FAMOTIDINE 20 MG TAB PO SCH ×2 (08:47→17:20)
[2020-06-26] MEDS: CHOLECALCIFEROL 1,000 UNIT TAB PO SCH (08:48)
[2020-06-26] MEDS: SENNA-S TABLET PO SCH ×2 (08:48→17:20)
[2020-06-26] MEDS: ASCORBIC ACID 500 MG TAB PO SCH ×2 (08:48→17:20)
[2020-06-26] MEDS: ZINC SULFATE 220 MG CAP PO SCH (08:48)
[2020-06-26] MEDS ORDERED: BENZONATATE 100 MG CAP PO PRN (09:45)
[2020-06-26] MEDS ORDERED: SODIUM CHLORIDE 0.9% 500ML 0 ML ONE (12:27)
[2020-06-26] MEDS: BENZONATATE 100 MG CAP PO SCH ×2 (14:38→20:31)
[2020-06-27] VITALS (8 sets, daily range): BP systolic 98–131; BP diastolic 29–86
[2020-06-27] MEDS: CEFTRIAXONE SOD 1 GM/NS 50 ML 50 ML IV SCH (00:45)
[2020-06-27] MEDS: HYDROCODONE/APAP 7.5MG-325MG 1 EA TAB PO PRN (00:46)
[2020-06-27] MEDS: SODIUM CHLORIDE 0.9% 1000ML 1,000 ML IV SCH ×2 (05:03→18:11)
[2020-06-27] MEDS: ONDANSETRON HCL INJ 2MG/ML 2ML 2 MG/ML VIAL IV PRN ×3 (07:30→21:57)
[2020-06-27] MEDS: SENNA-S TABLET PO SCH ×2 (07:30→16:04)
[2020-06-27] MEDS: BENZONATATE 100 MG CAP PO SCH ×3 (07:30→21:57)
[2020-06-27] MEDS: ASCORBIC ACID 500 MG TAB PO SCH ×2 (07:30→16:04)
[2020-06-27] MEDS: ZINC SULFATE 220 MG CAP PO SCH (07:30)
[2020-06-27] MEDS: CHOLECALCIFEROL 1,000 UNIT TAB PO SCH (07:30)
[2020-06-27] MEDS: FAMOTIDINE 20 MG TAB PO SCH ×2 (07:30→16:04)
[2020-06-27] MEDS: HYDROMORPHONE 1MG/1ML INJ IV PRN ×3 (07:30→21:58)
[2020-06-28] VITALS (8 sets, daily range): BP systolic 101–115; BP diastolic 64–81
[2020-06-28] MEDS: CEFTRIAXONE SOD 1 GM/NS 50 ML 50 ML IV SCH (00:11)
[2020-06-28] MEDS: ONDANSETRON HCL INJ 2MG/ML 2ML 2 MG/ML VIAL IV PRN ×2 (05:26→18:04)
[2020-06-28] MEDS: HYDROMORPHONE 1MG/1ML INJ IV PRN ×2 (05:26→18:04)
[2020-06-28 06:22] LABS: BASOPHILS % 0.3 % (0.0-1.0); EOSINOPHILS # (AUTO) 0.2 (0.0-0.4); EOSINOPHILS % 2.3 % (0.0-6.0); HEMATOCRIT 36.2 % (34.2-44.1); HEMOGLOBIN 12.1 g/dL (12.0-16.0); LYMPHOCYTES # (AUTO) 1.6 (1.0-3.2); LYMPHOCYTES % 22.9 % (18.0-39.1); MEAN CORPUSCULAR HEMOGLOBIN 28.6 pg (28-32); MEAN CORPUSCULAR HGB CONC 33.4 g/dL (31-35); MEAN CORPUSCULAR VOLUME 85.6 fL (81-99); MONOCYTES # (AUTO) 0.4 (0.2-0.8); MONOCYTES % 5.6 % (4.4-11.3); NEUTROPHILS # (AUTO) 4.9 (2.1-6.9); NEUTROPHILS % 68.3 % (38.7-80.0); PLATELET COUNT 215 x10e3/uL (140-360); RED BLOOD COUNT 4.23 x10e6/uL (3.6-5.1); RED CELL DISTRIBUTION WIDTH 12.9 % (11.7-14.4)
[2020-06-28 06:57] LABS: BLOOD UREA NITROGEN 9 mg/dL (7-26); BUN/CREATININE RATIO 13 (6-25); CARBON DIOXIDE 26 mmol/L (22-29); CHLORIDE 102 mmol/L (98-107); CREATININE, SERUM 0.69 mg/dL (0.57-1.11); EST GLOMERULAR FILTRATION RATE > 60 ML/MIN (60-); GLUCOSE 102 mg/dL (74-118); SODIUM 137 mmol/L (136-145)
[2020-06-28] MEDS: SODIUM CHLORIDE 0.9% 1000ML 1,000 ML IV SCH ×2 (07:43→21:51)
[2020-06-28] MEDS: ZINC SULFATE 220 MG CAP PO SCH (08:06)
[2020-06-28] MEDS: BENZONATATE 100 MG CAP PO SCH ×3 (08:06→21:51)
[2020-06-28] MEDS: FAMOTIDINE 20 MG TAB PO SCH ×2 (08:06→15:11)
[2020-06-28] MEDS: CHOLECALCIFEROL 1,000 UNIT TAB PO SCH (08:06)
[2020-06-28] MEDS: SENNA-S TABLET PO SCH ×2 (08:06→16:35)
[2020-06-28] MEDS: ASCORBIC ACID 500 MG TAB PO SCH ×2 (08:06→16:35)
[2020-06-28] MEDS: HYDROCODONE/APAP 7.5MG-325MG 1 EA TAB PO PRN ×2 (14:32→23:27)
[2020-06-29] VITALS (8 sets, daily range): BP systolic 100–125; BP diastolic 60–70
[2020-06-29] MEDS: CEFTRIAXONE SOD 1 GM/NS 50 ML 50 ML IV SCH (01:36)
[2020-06-29] MEDS ORDERED: IOPAMIDOL 300MG/ML 50ML INFUS..BTL IV ONE (06:06)
[2020-06-29] MEDS ORDERED: FENTANYL CITRATE/PF 100MCG/2 ML INJ ONE (07:33)
[2020-06-29] MEDS: ZINC SULFATE 220 MG CAP PO SCH (08:09)
[2020-06-29] MEDS: BENZONATATE 100 MG CAP PO SCH ×3 (08:09→22:06)
[2020-06-29] MEDS: ASCORBIC ACID 500 MG TAB PO SCH ×2 (08:09→17:34)
[2020-06-29] MEDS: SENNA-S TABLET PO SCH ×2 (08:09→17:34)
[2020-06-29] MEDS: CHOLECALCIFEROL 1,000 UNIT TAB PO SCH (08:09)
[2020-06-29] MEDS: FAMOTIDINE 20 MG TAB PO SCH ×2 (08:09→17:34)
[2020-06-29] MEDS: HYDROMORPHONE 1MG/1ML INJ IV PRN ×4 (09:20→22:16)
[2020-06-29] MEDS: ONDANSETRON HCL INJ 2MG/ML 2ML 2 MG/ML VIAL IV PRN ×4 (09:20→22:16)
[2020-06-29] MEDS ORDERED: LIDOCAINE HCL 2% LOCAL INJ 5 ML SDV VIAL INJ ONE (13:21)
[2020-06-29] MEDS ORDERED: ONDANSETRON HCL INJ 2MG/ML 2ML 2 MG/ML VIAL ONE (13:21)
[2020-06-29] MEDS ORDERED: SEVOFLURANE INHAL SOLN 250 ML PEN BTL ONE (13:21)
[2020-06-29] MEDS ORDERED: KETOROLAC TROMETHAMINE 30 MG/ML VIAL ONE (13:21)
[2020-06-29] MEDS ORDERED: DEXAMETHASONE SOD PHOS INJ 4 MG/ML VIAL ONE (13:21)
[2020-06-29] MEDS ORDERED: PROPOFOL IV EMULSION 10 MG/ML 20 ML VIAL ONE (13:21)
[2020-06-29] MEDS: SODIUM CHLORIDE 0.9% 1000ML 1,000 ML IV SCH ×2 (13:25→23:43)
[2020-06-30] VITALS: BP 99/62
[2020-06-30] MEDS: CEFTRIAXONE SOD 1 GM/NS 50 ML 50 ML IV SCH (00:15)
[2020-06-30 04:40] VITALS: BP 108/72
[2020-06-30] MEDS: ONDANSETRON HCL INJ 2MG/ML 2ML 2 MG/ML VIAL IV PRN (06:36)
[2020-06-30] MEDS: HYDROMORPHONE 1MG/1ML INJ IV PRN (06:36)
[2020-06-30 07:37] VITALS: BP 116/75
[2020-06-30] MEDS: FAMOTIDINE 20 MG TAB PO SCH (08:55)
[2020-06-30] MEDS: SENNA-S TABLET PO SCH (08:55)
[2020-06-30] MEDS: ZINC SULFATE 220 MG CAP PO SCH (08:55)
[2020-06-30] MEDS: BENZONATATE 100 MG CAP PO SCH (08:55)
[2020-06-30] MEDS: CHOLECALCIFEROL 1,000 UNIT TAB PO SCH (08:55)
[2020-06-30] MEDS: ASCORBIC ACID 500 MG TAB PO SCH (08:55)
[2020-06-30] MEDS ORDERED: TESSALON PERLE100 MG PO (09:50)
[2020-06-30] MEDS ORDERED: VITAMIN D32400 UNIT/ PO (09:51)
[2020-06-30] MEDS ORDERED: ASCORBIC ACID500 M2 PO (09:52)
[2020-06-30] MEDS ORDERED: MOBIC7.5 MG PO (09:53)
[2020-06-30] MEDS ORDERED: CIPRO500 MG PO (09:55)
[2020-06-30 11:46] VITALS: BP 116/75
[2020-07-02] MEDS ORDERED: ZINC SULFATE220 MG PO (13:52)
== END 2020-06-30 11:49 | disposition home or self-care (01) | DRG 659 ==
LOC: ER 21:12 → ERHOLD 06-25 00:13 → MED/SURG3 06-25 01:29
PROVIDERS: ADMIT Internal Medicine; ATTEND Internal Medicine
PROC: BT1F1ZZ Fluoroscopy of Left Kidney, Ureter and Bladder using Low Osmolar Contrast (ICD-10-PCS; 2020-06-29)
PROC: 0T778DZ Dilation of Left Ureter with Intraluminal Device, Via Natural or Artificial Opening Endoscopic (ICD-10-PCS; principal; 2020-06-29 06:30)
DX: N13.6 Pyonephrosis (principal); U07.1 COVID-19; Z20.822 Contact with and (suspected) exposure to COVID-19; D64.9 Anemia, unspecified
CPT/HCPCS: 36415; 71045; 74018; 74176; 74420; 80048; 80053; 81001; 81025; 82948; 85025; 99284; C1758; C1769; C2617; J0696; J1100; J1170; J1885; J2001; J2405; J2765; J3010; J7030; J7040; U0002

== ENCOUNTER → 2020-07-07 | Day surgery (SDC) | payer OTHER ==
[~2020-07-07] MED LIST changes: +ASCORBIC ACID500 M2 PO; +GENTAMICIN 120MG/NS 100ML 100 ML ONE; +IOPAMIDOL 300MG/ML 50ML INFUS..BTL IV ONE; +MEPERIDINE HCL INJ 25 MG/ML VIAL ONE; +MOBIC7.5 MG PO; +TESSALON PERLE100 MG PO; +VITAMIN D32400 UNIT/ PO; +ZINC SULFATE220 MG PO
[2020-07-07 15:00] VITALS: BP 91/64
== END | disposition home or self-care (01) ==
LOC: OR 10:56
PROVIDERS: ATTEND Urology
DX: N20.0 Calculus of kidney (principal); Z46.6 Encounter for fitting and adjustment of urinary device; M54.9 Dorsalgia, unspecified; F41.9 Anxiety disorder, unspecified; Z01.818 Encounter for other preprocedural examination; Z86.16 Personal history of COVID-19
CPT/HCPCS: 50590; 74018; C1758; C1769; J1580; J2175

== ENCOUNTER → 2020-08-06 | Day surgery (SDC) | payer OTHER ==
[~2020-08-06] MED LIST changes: +CEFTRIAXONE SOD 1 GM VIAL ONE; +DEXAMETHASONE SOD PHOS INJ 4 MG/ML VIAL ONE; +FENTANYL CITRATE/PF 100MCG/2 ML INJ ONE; -GENTAMICIN 120MG/NS 100ML 100 ML ONE; -IOPAMIDOL 300MG/ML 50ML INFUS..BTL IV ONE; +LIDOCAINE HCL 2% LOCAL INJ 5 ML SDV VIAL INJ ONE; -MEPERIDINE HCL INJ 25 MG/ML VIAL ONE; +MIDAZOLAM HCL 2 MG/2 ML VIAL ONE; +ONDANSETRON HCL INJ 2MG/ML 2ML 2 MG/ML VIAL ONE; +PROPOFOL IV EMULSION 10 MG/ML 20 ML VIAL ONE; +SEVOFLURANE INHAL SOLN 250 ML PEN BTL ONE; +SODIUM CHLORIDE 0.9% 50ML 50 ML ONE
[2020-08-06 10:21] VITALS: BP 91/56
== END | disposition home or self-care (01) ==
LOC: OR 05:48
PROVIDERS: ATTEND Urology
DX: N20.0 Calculus of kidney (principal); N13.30 Unspecified hydronephrosis; N39.0 Urinary tract infection, site not specified; R35.1 Nocturia; E66.01 Morbid (severe) obesity due to excess calories; F32.9 Major depressive disorder, single episode, unspecified; F41.9 Anxiety disorder, unspecified; Z01.818 Encounter for other preprocedural examination; Z68.37 Body mass index [BMI] 37.0-37.9, adult; Z86.16 Personal history of COVID-19
CPT/HCPCS: 50590; 74018; 81025; J0696; J1100; J2001; J2250; J2405; J2704; J3010

== ENCOUNTER → 2020-09-07 | Outpatient (CLI) | payer OTHER ==
[~2020-09-07] MED LIST changes: -CEFTRIAXONE SOD 1 GM VIAL ONE; -DEXAMETHASONE SOD PHOS INJ 4 MG/ML VIAL ONE; -FENTANYL CITRATE/PF 100MCG/2 ML INJ ONE; -LIDOCAINE HCL 2% LOCAL INJ 5 ML SDV VIAL INJ ONE; -MIDAZOLAM HCL 2 MG/2 ML VIAL ONE; -ONDANSETRON HCL INJ 2MG/ML 2ML 2 MG/ML VIAL ONE; -PROPOFOL IV EMULSION 10 MG/ML 20 ML VIAL ONE; -SEVOFLURANE INHAL SOLN 250 ML PEN BTL ONE; -SODIUM CHLORIDE 0.9% 50ML 50 ML ONE
== END ==
LOC: RAD 15:45
PROVIDERS: ATTEND Urology
DX: N20.0 Calculus of kidney (principal)
CPT/HCPCS: 74018; 81025

== ENCOUNTER 2021-07-24 02:28 | Inpatient (IN) | payer BC, OTHER ==
[~2021-07-24] VITALS: Ht 154.9 cm; Wt 83.9 kg
[2021-07-24] MEDS ORDERED: KETOROLAC TROMETHAMINE 30 MG/ML VIAL IV STA (02:34)
[2021-07-24] MEDS ORDERED: ONDANSETRON HCL INJ 2MG/ML 2ML 2 MG/ML VIAL IV STA (02:34)
[2021-07-24] MEDS ORDERED: KETOROLAC TROMETHAMINE 30 MG/ML VIAL ONE (02:47)
[2021-07-24] MEDS ORDERED: KETOROLAC TROMETHAMINE 60 MG/2 ML VIAL ONE (02:47)
[2021-07-24] MEDS ORDERED: ONDANSETRON HCL INJ 2MG/ML 2ML 2 MG/ML VIAL ONE (02:47)
[2021-07-24 03:08] LABS: BASOPHILS % 0.4 % (0.0-1.0); EOSINOPHILS # (AUTO) 0.1 (0.0-0.4); EOSINOPHILS % 1.5 % (0.0-6.0); HEMATOCRIT 37.8 % (34.2-44.1); HEMOGLOBIN 12.7 g/dL (12.0-16.0); LYMPHOCYTES # (AUTO) 3.3 (1.0-3.2); LYMPHOCYTES % 33.7 % (18.0-39.1); MEAN CORPUSCULAR HEMOGLOBIN 28.9 pg (28-32); MEAN CORPUSCULAR HGB CONC 33.6 g/dL (31-35); MEAN CORPUSCULAR VOLUME 86.1 fL (81-99); MONOCYTES # (AUTO) 0.6 (0.2-0.8); MONOCYTES % 5.7 % (4.4-11.3); NEUTROPHILS # (AUTO) 5.6 (2.1-6.9); NEUTROPHILS % 58.4 % (38.7-80.0); PLATELET COUNT 297 x10e3/uL (140-360); RED BLOOD COUNT 4.39 x10e6/uL (3.6-5.1); RED CELL DISTRIBUTION WIDTH 13.3 % (11.7-14.4)
[2021-07-24 03:15] LABS: ANION GAP 12.8 mmol/L (8-16); CREATININE, SERUM 0.82 mg/dL (0.57-1.11); POTASSIUM 3.8 mmol/L (3.5-5.1)
[2021-07-24 03:34] LABS: CLARITY,URINE CLEAR (CLEAR); COLOR,URINE YELLOW (YELLOW); LEUKOCYTE ESTERASE ,URINE TRACE (NEGATIVE); NITRITE,URINE NEGATIVE (NEGATIVE); PROTEIN,URINE DIPSTICK TRACE (NEGATIVE)
[2021-07-24 03:35] LABS: BACTERIA,URINE MANY /HPF; EPITHELIAL CELLS,URINE MANY /LPF; KETONES,URINE NEGATIVE (NEGATIVE); RBC,URINE >50 /HPF (0-5); URINE UROBILINOGEN 0.2 mg/dL (0.2 - 1); WBC,URINE (MAN) >50 /HPF (0-5)
[2021-07-24] MEDS: CEFTRIAXONE 1 GM in SODIUM CHLORIDE 0.9% 50ML 50 ML IV SCH ×2 (05:24→09:10)
[2021-07-24] MEDS: Morphine 4mg Syringe 4 MG/ML INJ IV PRN ×3 (05:41→15:25)
[2021-07-24] MEDS: SODIUM CHLORIDE 0.9% 1000ML 1,000 ML IV SCH ×3 (05:41→20:38)
[2021-07-24 07:54] VITALS: BP 103/60
[2021-07-24] MEDS ORDERED: HYDROCODONE/APAP 10MG-325MG TAB PO PRN (09:15)
[2021-07-24] MEDS ORDERED: MAGNESIUM HYDROXIDE 30 ML UDC PO PRN (09:15)
[2021-07-24] MEDS ORDERED: KETOROLAC TROMETHAMINE 30 MG/ML VIAL IV PRN (09:15)
[2021-07-24] MEDS: ONDANSETRON HCL INJ 2MG/ML 2ML 2 MG/ML VIAL IV PRN ×2 (10:45→15:25)
[2021-07-24 10:46] VITALS: BP 103/60
[2021-07-24 10:48] VITALS: BP 103/60
[2021-07-24 11:49] VITALS: BP 100/62
[2021-07-24 15:47] VITALS: BP 103/54
[2021-07-24 20:00] VITALS: BP 91/48
[2021-07-25] VITALS: BP 102/62
[2021-07-25] MEDS: ONDANSETRON HCL INJ 2MG/ML 2ML 2 MG/ML VIAL IV PRN ×5 (03:19→22:05)
[2021-07-25] MEDS: Morphine 4mg Syringe 4 MG/ML INJ IV PRN ×5 (03:20→22:05)
[2021-07-25 04:00] VITALS: BP 97/54
[2021-07-25] MEDS: SODIUM CHLORIDE 0.9% 1000ML 1,000 ML IV SCH ×2 (04:26→11:57)
[2021-07-25 05:08] LABS: BASOPHILS % 0.6 % (0.0-1.0); EOSINOPHILS # (AUTO) 0.1 (0.0-0.4); EOSINOPHILS % 2.1 % (0.0-6.0); HEMATOCRIT 33.5 % (34.2-44.1); HEMOGLOBIN 11.1 g/dL (12.0-16.0); LYMPHOCYTES % 29.8 % (18.0-39.1); MEAN CORPUSCULAR HEMOGLOBIN 28.8 pg (28-32); MEAN CORPUSCULAR HGB CONC 33.1 g/dL (31-35); MONOCYTES # (AUTO) 0.4 (0.2-0.8); MONOCYTES % 5.5 % (4.4-11.3); NEUTROPHILS % 61.7 % (38.7-80.0); PLATELET COUNT 229 x10e3/uL (140-360); RED BLOOD COUNT 3.85 x10e6/uL (3.6-5.1); RED CELL DISTRIBUTION WIDTH 13.3 % (11.7-14.4)
[2021-07-25 05:24] LABS: CALCIUM 7.9 mg/dL (8.4-10.2); CREATININE, SERUM 0.72 mg/dL (0.57-1.11)
[2021-07-25] MEDS: CEFTRIAXONE 1 GM in SODIUM CHLORIDE 0.9% 50ML 50 ML IV SCH (08:00)
[2021-07-25 08:11] VITALS: BP 102/67
[2021-07-25 08:25] VITALS: BP 102/67
[2021-07-25 11:34] VITALS: BP 122/81
[2021-07-25 20:00] VITALS: BP_SYST 122; BP_SYST 94; BP_DIAS 58; BP_DIAS 81
[2021-07-26] VITALS: BP 84/46
[2021-07-26] MEDS: SODIUM CHLORIDE 0.9% 1000ML 1,000 ML IV SCH ×3 (03:27→13:13)
[2021-07-26] MEDS: Morphine 4mg Syringe 4 MG/ML INJ IV PRN ×5 (03:28→22:24)
[2021-07-26] MEDS: ONDANSETRON HCL INJ 2MG/ML 2ML 2 MG/ML VIAL IV PRN ×3 (07:51→17:36)
[2021-07-26] MEDS: CEFTRIAXONE 1 GM in SODIUM CHLORIDE 0.9% 50ML 50 ML IV SCH (07:51)
[2021-07-26 08:00] VITALS: BP 110/79
[2021-07-26 08:33] VITALS: BP 110/79
[2021-07-26 11:59] VITALS: BP 106/67
[2021-07-26 15:57] VITALS: BP 98/66
[2021-07-26 21:55] VITALS: BP 102/64
[2021-07-27] VITALS (9 sets, daily range): BP systolic 97–118; BP diastolic 57–74
[2021-07-27] MEDS: SODIUM CHLORIDE 0.9% 1000ML 1,000 ML IV SCH ×2 (03:09→18:45)
[2021-07-27] MEDS: Morphine 4mg Syringe 4 MG/ML INJ IV PRN ×5 (03:36→22:44)
[2021-07-27 06:37] LABS: ANION GAP 9.3 mmol/L (8-16); CALCIUM 8.4 mg/dL (8.4-10.2); CREATININE, SERUM 0.75 mg/dL (0.57-1.11); POTASSIUM 4.3 mmol/L (3.5-5.1)
[2021-07-27] MEDS: CEFTRIAXONE 1 GM in SODIUM CHLORIDE 0.9% 50ML 50 ML IV SCH (09:12)
[2021-07-27] MEDS: ONDANSETRON HCL INJ 2MG/ML 2ML 2 MG/ML VIAL IV PRN ×4 (09:12→22:43)
[2021-07-27] MEDS ORDERED: DEXAMETHASONE SOD PHOS INJ 4 MG/ML SDV ONE (12:00)
[2021-07-27] MEDS ORDERED: LIDOCAINE HCL 2% LOCAL INJ 5 ML SDV VIAL INJ ONE (12:00)
[2021-07-27] MEDS ORDERED: ONDANSETRON HCL INJ 2MG/ML 2ML 2 MG/ML VIAL ONE (12:00)
[2021-07-27] MEDS ORDERED: PROPOFOL IV EMULSION 10 MG/ML 20 ML VIAL ONE (12:00)
[2021-07-27] MEDS ORDERED: POVIDONE IODINE 0.05% 0.05 % ML PO ONE (12:00)
[2021-07-27] MEDS ORDERED: IOPAMIDOL 300MG/ML 50ML INFUS..BTL IV ONE (12:58)
[2021-07-27] MEDS ORDERED: MIDAZOLAM HCL 2 MG/2 ML VIAL ONE (13:10)
[2021-07-27] MEDS ORDERED: FENTANYL CITRATE/PF 100MCG/2 ML INJ ONE (13:10)
[2021-07-28 04:00] VITALS: BP 102/55
[2021-07-28 04:45] LABS: BASOPHILS % 0.2 % (0.0-1.0); HEMATOCRIT 35.9 % (34.2-44.1); HEMOGLOBIN 12.1 g/dL (12.0-16.0); LYMPHOCYTES # (AUTO) 1.1 (1.0-3.2); LYMPHOCYTES % 8.3 % (18.0-39.1); MEAN CORPUSCULAR HEMOGLOBIN 29.1 pg (28-32); MEAN CORPUSCULAR HGB CONC 33.7 g/dL (31-35); MEAN CORPUSCULAR VOLUME 86.3 fL (81-99); MONOCYTES # (AUTO) 0.5 (0.2-0.8); MONOCYTES % 3.4 % (4.4-11.3); NEUTROPHILS # (AUTO) 11.6 (2.1-6.9); NEUTROPHILS % 87.3 % (38.7-80.0); PLATELET COUNT 248 x10e3/uL (140-360); RED BLOOD COUNT 4.16 x10e6/uL (3.6-5.1); RED CELL DISTRIBUTION WIDTH 12.6 % (11.7-14.4)
[2021-07-28] MEDS: Morphine 4mg Syringe 4 MG/ML INJ IV PRN (04:53)
[2021-07-28] MEDS: ONDANSETRON HCL INJ 2MG/ML 2ML 2 MG/ML VIAL IV PRN (04:53)
[2021-07-28 05:05] LABS: CALCIUM 8.4 mg/dL (8.4-10.2); CREATININE, SERUM 0.72 mg/dL (0.57-1.11)
[2021-07-28] MEDS: SODIUM CHLORIDE 0.9% 1000ML 1,000 ML IV SCH ×2 (05:57→09:09)
[2021-07-28 07:53] VITALS: BP 109/65
[2021-07-28 08:00] VITALS: BP 109/65
[2021-07-28] MEDS: CEFTRIAXONE 1 GM in SODIUM CHLORIDE 0.9% 50ML 50 ML IV SCH (09:09)
[2021-07-28] MEDS ORDERED: KEFLEX125 MG/5 M PO (10:13)
[2021-07-28] MEDS ORDERED: PYRIDIUM100 MG PO (10:14)
[2021-07-28] MEDS ORDERED: CEPHALEXIN500 MG PO (10:17)
== END 2021-07-28 11:17 | disposition home or self-care (01) | DRG 690 ==
LOC: ER 02:36 → ERHOLD 04:12 → MED/SURG 06:08
PROVIDERS: ADMIT Internal Medicine; ATTEND Internal Medicine
PROC: 0TC78ZZ Extirpation of Matter from Left Ureter, Via Natural or Artificial Opening Endoscopic (ICD-10-PCS; principal; 2021-07-27 13:00)
PROC: BT141ZZ Fluoroscopy of Kidneys, Ureters and Bladder using Low Osmolar Contrast (ICD-10-PCS; 2021-07-27 13:00)
DX: N13.6 Pyonephrosis (principal); B96.20 Unspecified Escherichia coli [E. coli] as the cause of diseases classified elsewhere; E66.9 Obesity, unspecified; E86.0 Dehydration; Z68.34 Body mass index [BMI] 34.0-34.9, adult; Z87.442 Personal history of urinary calculi; Z90.49 Acquired absence of other specified parts of digestive tract; Z20.822 Contact with and (suspected) exposure to COVID-19
CPT/HCPCS: 36415; 74018; 74176; 74420; 80048; 81001; 81025; 85025; 87086; 87186; 88300; 94799; 99284; C1758; C1769; J0696; J1100; J1885; J2001; J2250; J2270; J2405; J3010; J7030; U0002

== ENCOUNTER → 2021-09-23 | Day surgery (SDC) | payer BC ==
[~2021-09-23] MED LIST changes: +DEXAMETHASONE SOD PHOS INJ 4 MG/ML SDV ONE; +FENTANYL CITRATE/PF 100MCG/2 ML INJ ONE; +GENTAMICIN 80MG/NS 100 ML 100 ML IV ONE; +KEFLEX125 MG/5 M PO; +LIDOCAINE HCL 2% LOCAL INJ 5 ML SDV VIAL INJ ONE; +MIDAZOLAM HCL 2 MG/2 ML VIAL ONE; +ONDANSETRON HCL INJ 2MG/ML 2ML 2 MG/ML VIAL ONE; +POVIDONE IODINE 0.05% 0.05 % ML PO ONE; +PROPOFOL IV EMULSION 10 MG/ML 20 ML VIAL ONE; +PYRIDIUM100 MG PO; +SEVOFLURANE INHAL SOLN 250 ML PEN BTL ONE
[2021-09-23 08:50] VITALS: BP 113/81
== END | disposition home or self-care (01) ==
LOC: OR 05:54 → EDSEX 07:00
PROVIDERS: ATTEND Urology
DX: N20.0 Calculus of kidney (principal); N13.1 Hydronephrosis with ureteral stricture, not elsewhere classified; N39.0 Urinary tract infection, site not specified; R35.1 Nocturia; E66.01 Morbid (severe) obesity due to excess calories; Z01.812 Encounter for preprocedural laboratory examination; Z01.818 Encounter for other preprocedural examination; Z20.822 Contact with and (suspected) exposure to COVID-19; Z68.37 Body mass index [BMI] 37.0-37.9, adult
CPT/HCPCS: 50590; 74018; 81025; J1100; J1580; J2001; J2250; J2405; J2704; J3010; U0002

== ENCOUNTER → 2021-12-29 | Outpatient (CLI) | payer BC ==
[~2021-12-29] MED LIST changes: -DEXAMETHASONE SOD PHOS INJ 4 MG/ML SDV ONE; -FENTANYL CITRATE/PF 100MCG/2 ML INJ ONE; -GENTAMICIN 80MG/NS 100 ML 100 ML IV ONE; -LIDOCAINE HCL 2% LOCAL INJ 5 ML SDV VIAL INJ ONE; -MIDAZOLAM HCL 2 MG/2 ML VIAL ONE; -ONDANSETRON HCL INJ 2MG/ML 2ML 2 MG/ML VIAL ONE; -POVIDONE IODINE 0.05% 0.05 % ML PO ONE; -PROPOFOL IV EMULSION 10 MG/ML 20 ML VIAL ONE; -SEVOFLURANE INHAL SOLN 250 ML PEN BTL ONE
== END ==
LOC: RAD 10:54
PROVIDERS: ATTEND Urology
DX: N20.0 Calculus of kidney (principal)
CPT/HCPCS: 74018

== ENCOUNTER → 2022-01-20 | Day surgery (SDC) | payer BC ==
[~2022-01-20] MED LIST changes: +CEFTRIAXONE 1 GM VIAL ONE; +DEXAMETHASONE SOD PHOS INJ 4 MG/ML SDV ONE; +FENTANYL CITRATE/PF 100MCG/2 ML INJ ONE; +LIDOCAINE HCL 2% LOCAL INJ 5 ML SDV VIAL INJ ONE; +MIDAZOLAM HCL 2 MG/2 ML VIAL ONE; +ONDANSETRON HCL INJ 2MG/ML 2ML 2 MG/ML VIAL ONE; +POVIDONE IODINE 0.05% 0.05 % ML PO ONE; +PROPOFOL IV EMULSION 10 MG/ML 20 ML VIAL ONE; +SEVOFLURANE INHAL SOLN 250 ML PEN BTL ONE; +SODIUM CHLORIDE 0.9% 1000ML 0 ML ONE
[2022-01-20 08:00] VITALS: BP 105/72
== END | disposition home or self-care (01) ==
LOC: OR 06:52
PROVIDERS: ATTEND Urology
DX: N20.0 Calculus of kidney (principal); N39.0 Urinary tract infection, site not specified; E66.9 Obesity, unspecified; Z01.818 Encounter for other preprocedural examination; Z01.812 Encounter for preprocedural laboratory examination; Z20.822 Contact with and (suspected) exposure to COVID-19
CPT/HCPCS: 0223U; 36415; 50590; 74018; 81025; J0696; J1100; J2001; J2250; J2405; J2704; J3010; J7030

== ENCOUNTER → 2022-03-21 | Outpatient (CLI) | payer BC ==
[~2022-03-21] MED LIST changes: -CEFTRIAXONE 1 GM VIAL ONE; -DEXAMETHASONE SOD PHOS INJ 4 MG/ML SDV ONE; -FENTANYL CITRATE/PF 100MCG/2 ML INJ ONE; -LIDOCAINE HCL 2% LOCAL INJ 5 ML SDV VIAL INJ ONE; -MIDAZOLAM HCL 2 MG/2 ML VIAL ONE; -ONDANSETRON HCL INJ 2MG/ML 2ML 2 MG/ML VIAL ONE; -POVIDONE IODINE 0.05% 0.05 % ML PO ONE; -PROPOFOL IV EMULSION 10 MG/ML 20 ML VIAL ONE; -SEVOFLURANE INHAL SOLN 250 ML PEN BTL ONE; -SODIUM CHLORIDE 0.9% 1000ML 0 ML ONE
== END ==
LOC: MAMMO 15:17
PROVIDERS: ATTEND Obstetrics & Gynecology
DX: Z12.31 Encounter for screening mammogram for malignant neoplasm of breast (principal)
CPT/HCPCS: 77067

== ENCOUNTER → 2022-03-29 | Outpatient (CLI) | payer BC | LOC: RAD 15:07 | PROVIDERS: ATTEND Urology | DX: N20.0 Calculus of kidney (principal) | CPT/HCPCS: 74018 ==

== ENCOUNTER 2024-08-30 16:06 | Inpatient (IN) | payer BC ==
[~2024-08-30] VITALS: Ht 154.9 cm; Wt 99.8 kg
[~2024-08-30 16:06] MED LIST changes: +CEFDINIR300 MG PO; +FLOMAX0.4 MG PO; +HYDROCODON-ACE1 EA11 PO; +ONDANSETRON ODT4 MG PO
[2024-08-30 16:10] VITALS: TEMP 98.6
[2024-08-30] MEDS: SODIUM CHLORIDE 0.9% 1000ML 1,000 ML IV STA (16:44)
[2024-08-30] MEDS: ONDANSETRON HCL INJ 2MG/ML 2ML 2 MG/ML VIAL IV STA (16:44)
[2024-08-30] MEDS: Morphine 4mg INJECTION 4 MG/ML INJ IV STA (16:44)
[2024-08-30] MEDS: KETOROLAC TROMETHAMINE 30 MG/ML VIAL IV STA (16:44)
[2024-08-30 16:48] LABS: BASOPHILS % 0.5 % (0.0-1.0); EOSINOPHILS # (AUTO) 0.1 (0.0-0.4); EOSINOPHILS % 1.5 % (0.0-6.0); HEMATOCRIT 37.2 % (34.2-44.1); LYMPHOCYTES % 36.8 % (18.0-39.1); MEAN CORPUSCULAR HGB CONC 32.3 g/dL (31-35); MEAN CORPUSCULAR VOLUME 86.7 fL (81-99); MONOCYTES # (AUTO) 0.6 (0.2-0.8); MONOCYTES % 7.2 % (4.4-11.3); NEUTROPHILS # (AUTO) 4.4 (2.1-6.9); NEUTROPHILS % 53.6 % (38.7-80.0); PLATELET COUNT 275 x10e3/uL (140-360); RED BLOOD COUNT 4.29 x10e6/uL (3.6-5.1); RED CELL DISTRIBUTION WIDTH 13.6 % (11.7-14.4); WHITE BLOOD COUNT 8.15 x10e3/uL (4.8-10.8)
[2024-08-30 17:00] LABS: INR 0.91; PROTHROMBIN TIME 12.8 seconds (11.9-14.5)
[2024-08-30 17:08] LABS: ALANINE AMINOTRANSFERASE 48 IU/L (0-55); ALBUMIN 3.9 g/dL (3.5-5.0); ALBUMIN/GLOBULIN RATIO 1.1 (0.8-2.0); ALKALINE PHOSPHATASE 71 IU/L (40-150); ANION GAP 13.8 mmol/L (8-16); BILIRUBIN,TOTAL 0.5 mg/dL (0.2-1.2); BLOOD UREA NITROGEN 13 mg/dL (7-26); BUN/CREATININE RATIO 17 (6-25); CARBON DIOXIDE 26 mmol/L (22-29); CHLORIDE 104 mmol/L (98-107); CREATININE, SERUM 0.77 mg/dL (0.57-1.11); EST GLOMERULAR FILTRATION RATE 96 ML/MIN (>=60); GLUCOSE 81 mg/dL (74-118); POTASSIUM 3.8 mmol/L (3.5-5.1); SODIUM 140 mmol/L (136-145); TOTAL PROTEIN 7.6 g/dL (6.5-8.1)
[2024-08-30 17:17] LABS: CLARITY,URINE CLOUDY (CLEAR); COLOR,URINE YELLOW (YELLOW); LEUKOCYTE ESTERASE ,URINE 1+ (NEGATIVE); NITRITE,URINE NEGATIVE (NEGATIVE); PH,URINE 6.5 (5 - 7)
[2024-08-30 17:18] LABS: BILIRUBIN,URINE NEGATIVE (NEGATIVE); GLUCOSE, URINE NEGATIVE (NEGATIVE); KETONES,URINE NEGATIVE (NEGATIVE); PROTEIN,URINE DIPSTICK 2+ (NEGATIVE); URINE UROBILINOGEN 0.2 mg/dL (0.2 - 1)
[2024-08-30 17:28] LABS: BACTERIA,URINE MANY /HPF; EPITHELIAL CELLS,URINE MANY /LPF; RBC,URINE 21-50 /HPF (0-5); TRANSITIONAL EPI CELLS,URINE MODERATE; WBC,URINE (MAN) >50 /HPF (0-5)
[2024-08-30] MEDS: SODIUM CHLORIDE 0.9% 1000ML 1,000 ML IV SCH (18:43)
[2024-08-30] MEDS: Vancomycin IV 1 GM in SODIUM CHLORIDE 0.9% 250ML 250 ML IV ONE (18:44)
[2024-08-30 19:40] VITALS: PULSE 67; RESP 18
[2024-08-30 19:54] VITALS: BP 110/65; PULSE 68; RESP 18; TEMP 98.2; O2SAT 100
[2024-08-30 20:30] VITALS: BP 110/65; PULSE 68; RESP 18; TEMP 98.2; O2SAT 100
[2024-08-30] MEDS: ONDANSETRON HCL INJ 2MG/ML 2ML 2 MG/ML VIAL IV PRN (20:48)
[2024-08-30] MEDS: HYDROMORPHONE 1MG/1ML INJ IV PRN (20:50)
[2024-08-30 23:03] VITALS: BP 96/62; PULSE 72; RESP 18; TEMP 98; O2SAT 99
[2024-08-31] VITALS (9 sets, daily range): BP systolic 90–110; BP diastolic 58–75; PULSE 71–88; RESP 17–20; TEMP 97.9–98.2; O2SAT 98–100
[2024-08-31] MEDS ORDERED: OZEMPIC0.25 MG/02 (01:05)
[2024-08-31 05:07] LABS: BASOPHILS % 0.5 % (0.0-1.0); EOSINOPHILS # (AUTO) 0.1 (0.0-0.4); EOSINOPHILS % 1.4 % (0.0-6.0); HEMATOCRIT 31.1 % (34.2-44.1); HEMOGLOBIN 10.3 g/dL (12.0-16.0); LYMPHOCYTES # (AUTO) 2.4 (1.0-3.2); LYMPHOCYTES % 30.4 % (18.0-39.1); MEAN CORPUSCULAR HEMOGLOBIN 28.9 pg (28-32); MEAN CORPUSCULAR HGB CONC 33.1 g/dL (31-35); MEAN CORPUSCULAR VOLUME 87.1 fL (81-99); MONOCYTES # (AUTO) 0.6 (0.2-0.8); MONOCYTES % 7.5 % (4.4-11.3); NEUTROPHILS # (AUTO) 4.7 (2.1-6.9); NEUTROPHILS % 59.9 % (38.7-80.0); PLATELET COUNT 200 x10e3/uL (140-360); RED BLOOD COUNT 3.57 x10e6/uL (3.6-5.1); RED CELL DISTRIBUTION WIDTH 13.5 % (11.7-14.4); WHITE BLOOD COUNT 7.87 x10e3/uL (4.8-10.8)
[2024-08-31 06:04] LABS: ALBUMIN 3.1 g/dL (3.5-5.0); ALBUMIN/GLOBULIN RATIO 1.1 (0.8-2.0); ANION GAP 11.8 mmol/L (8-16); BILIRUBIN,TOTAL 0.6 mg/dL (0.2-1.2); CALCIUM 7.6 mg/dL (8.4-10.2); CREATININE, SERUM 0.74 mg/dL (0.57-1.11); POTASSIUM 3.8 mmol/L (3.5-5.1); TOTAL PROTEIN 5.8 g/dL (6.5-8.1)
[2024-08-31] MEDS ORDERED: HYDRALAZINE HCL 20 MG/ML VIAL IV PRN (11:30)
[2024-08-31] MEDS ORDERED: MAGNESIUM HYDROXIDE 30 ML UDC PO PRN (11:30)
[2024-08-31] MEDS ORDERED: ACETAMINOPHEN 325 MG TAB PO PRN (11:30)
[2024-08-31] MEDS: CELECOXIB 200 MG CAP PO SCH (13:27)
[2024-08-31] MEDS: HYDROCODONE/APAP 10MG-325MG TAB PO PRN (13:27)
[2024-08-31] MEDS: POLYETHYLENE GLYCOL 3350 17 GM PACK PO SCH (13:28)
[2024-08-31] MEDS: SENNA-S TABLET PO SCH (17:00)
[2024-08-31] MEDS: PREGABALIN 50 MG CAP PO SCH (17:33)
[2024-09-01] VITALS (10 sets, daily range): BP systolic 109–130; BP diastolic 62–74; PULSE 66–83; RESP 18–20; TEMP 97.7–98.4; O2SAT 93–99
[2024-09-01] MEDS: KETOROLAC TROMETHAMINE 30 MG/ML VIAL IV PRN (22:08)
[2024-09-02] VITALS (8 sets, daily range): BP systolic 94–134; BP diastolic 54–77; PULSE 70–82; RESP 16–20; TEMP 97.3–98.3; O2SAT 97–99
[2024-09-02 08:33] LABS: BASOPHILS % 0.3 % (0.0-1.0); EOSINOPHILS # (AUTO) 0.1 (0.0-0.4); EOSINOPHILS % 1.6 % (0.0-6.0); HEMATOCRIT 31.2 % (34.2-44.1); HEMOGLOBIN 10.5 g/dL (12.0-16.0); LYMPHOCYTES % 26.2 % (18.0-39.1); MEAN CORPUSCULAR HEMOGLOBIN 28.9 pg (28-32); MEAN CORPUSCULAR HGB CONC 33.7 g/dL (31-35); MONOCYTES # (AUTO) 0.4 (0.2-0.8); MONOCYTES % 5.1 % (4.4-11.3); NEUTROPHILS # (AUTO) 4.9 (2.1-6.9); NEUTROPHILS % 66.4 % (38.7-80.0); PLATELET COUNT 207 x10e3/uL (140-360); RED BLOOD COUNT 3.63 x10e6/uL (3.6-5.1); WHITE BLOOD COUNT 7.43 x10e3/uL (4.8-10.8)
[2024-09-02] MEDS: Vancomycin IV 1 GM in SODIUM CHLORIDE 0.9% 250ML 250 ML IV SCH (08:43)
[2024-09-02 08:57] LABS: CALCIUM 8.1 mg/dL (8.4-10.2); CREATININE, SERUM 0.84 mg/dL (0.57-1.11)
[2024-09-03] VITALS (8 sets, daily range): BP systolic 110–149; BP diastolic 68–83; PULSE 62–87; RESP 17–20; TEMP 97.6–98.5; O2SAT 96–100
[2024-09-03 05:43] LABS: BASOPHILS % 0.3 % (0.0-1.0); EOSINOPHILS # (AUTO) 0.1 (0.0-0.4); HEMATOCRIT 35.7 % (34.2-44.1); HEMOGLOBIN 11.7 g/dL (12.0-16.0); LYMPHOCYTES # (AUTO) 1.9 (1.0-3.2); LYMPHOCYTES % 30.2 % (18.0-39.1); MEAN CORPUSCULAR HEMOGLOBIN 28.1 pg (28-32); MEAN CORPUSCULAR HGB CONC 32.8 g/dL (31-35); MEAN CORPUSCULAR VOLUME 85.8 fL (81-99); MONOCYTES # (AUTO) 0.3 (0.2-0.8); MONOCYTES % 5.2 % (4.4-11.3); NEUTROPHILS # (AUTO) 3.9 (2.1-6.9); NEUTROPHILS % 61.8 % (38.7-80.0); PLATELET COUNT 228 x10e3/uL (140-360); RED BLOOD COUNT 4.16 x10e6/uL (3.6-5.1); RED CELL DISTRIBUTION WIDTH 13.1 % (11.7-14.4); WHITE BLOOD COUNT 6.35 x10e3/uL (4.8-10.8)
[2024-09-03] MEDS ORDERED: SEVOFLURANE INHAL SOLN 250 ML PEN BTL ONE (06:07)
[2024-09-03] MEDS ORDERED: LIDOCAINE HCL 2% LOCAL INJ 5 ML SDV VIAL INJ ONE (06:07)
[2024-09-03] MEDS ORDERED: PROPOFOL IV EMULSION 10 MG/ML 20 ML VIAL ONE (06:07)
[2024-09-03] MEDS ORDERED: ONDANSETRON HCL INJ 2MG/ML 2ML 2 MG/ML VIAL ONE (06:07)
[2024-09-03] MEDS ORDERED: DEXAMETHASONE SOD PHOS INJ 4 MG/ML SDV ONE (06:07)
[2024-09-03 06:18] LABS: CALCIUM 8.4 mg/dL (8.4-10.2); CREATININE, SERUM 0.71 mg/dL (0.57-1.11)
[2024-09-03] MEDS ORDERED: SUCCINYLCHOLINE CHLORIDE 20 MG/ML 10ML VIAL ONE (06:22)
[2024-09-03] MEDS ORDERED: ROCURONIUM BROMIDE 1 ML IV ONE (06:22)
[2024-09-03] MEDS ORDERED: FENTANYL CITRATE/PF 100MCG/2 ML INJ ONE (06:22)
[2024-09-03] MEDS ORDERED: SUGAMMADEX SODIUM 200 MG/2 ML VIAL IV ONE (06:46)
[2024-09-03] MEDS: MEPERIDINE HCL INJ 25 MG/ML VIAL ONE (07:50)
[2024-09-04] VITALS: BP 116/75; PULSE 76; RESP 18; TEMP 98.2; O2SAT 98
[2024-09-04 04:00] VITALS: BP 119/74; PULSE 76; RESP 18; TEMP 98.2; O2SAT 99
[2024-09-04 08:00] VITALS: BP 125/79; PULSE 75; RESP 18; TEMP 98.2; O2SAT 99
[2024-09-04 08:06] VITALS: BP 125/79; PULSE 75; RESP 18; TEMP 98.2; O2SAT 99
[2024-09-04 11:36] VITALS: BP 112/66; PULSE 76; RESP 18; TEMP 97.8; O2SAT 100
[2024-09-04] MEDS ORDERED: ONDANSETRON ODT4 MG PO (12:31)
[2024-09-04] MEDS ORDERED: ACETAMINOPHEN325 M1 PO (12:31)
[2024-09-04] MEDS ORDERED: SENNA S TABLET1 EACH PO (12:31)
== END 2024-09-04 13:30 | disposition home or self-care (01) | DRG 660 ==
LOC: ER 16:36 → ERHOLD 18:33 → MED/SURG3 19:55
PROVIDERS: ADMIT Internal Medicine; ATTEND Internal Medicine
PROC: BT111ZZ Fluoroscopy of Right Kidney using Low Osmolar Contrast (ICD-10-PCS; 2024-09-03)
PROC: BT161ZZ Fluoroscopy of Right Ureter using Low Osmolar Contrast (ICD-10-PCS; 2024-09-03)
PROC: 0T768DZ Dilation of Right Ureter with Intraluminal Device, Via Natural or Artificial Opening Endoscopic (ICD-10-PCS; principal; 2024-09-03 06:31)
PROC: 0TF38ZZ Fragmentation in Right Kidney Pelvis, Via Natural or Artificial Opening Endoscopic (ICD-10-PCS; 2024-09-03 06:31)
DX: N13.6 Pyonephrosis (principal); E66.01 Morbid (severe) obesity due to excess calories; Z68.41 Body mass index [BMI] 40.0-44.9, adult; B95.8 Unspecified staphylococcus as the cause of diseases classified elsewhere; N23 Unspecified renal colic; K76.0 Fatty (change of) liver, not elsewhere classified; E83.51 Hypocalcemia; R31.0 Gross hematuria; Z79.85 Long-term (current) use of injectable non-insulin antidiabetic drugs; Z90.49 Acquired absence of other specified parts of digestive tract
CPT/HCPCS: 36415; 50590; 74018; 74176; 80048; 80053; 80202; 81001; 83735; 84702; 85025; 85610; 85730; 87086; 87186; 99252; 99284; C1758; C1769; C2617; J0330; J0690; J1100; J1171; J1885; J2003; J2175; J2270; J2405; J2470; J2543; J7030; J7050

== ENCOUNTER 2024-09-14 10:01 | Inpatient (IN) | payer BC ==
[~2024-09-14] VITALS: Ht 154.9 cm; Wt 99.8 kg
[~2024-09-14 10:01] MED LIST changes: +ACETAMINOPHEN325 M1 PO; +OZEMPIC0.25 MG/02; +SENNA S TABLET1 EACH PO
[2024-09-14 10:07] VITALS: TEMP 100.9
[2024-09-14] MEDS: ONDANSETRON HCL INJ 2MG/ML 2ML 2 MG/ML VIAL IV STA (10:35)
[2024-09-14] MEDS: ACETAMINOPHEN 325 MG TAB PO ONE ×2 (10:36→14:41)
[2024-09-14] MEDS: SODIUM CHLORIDE 0.9% 1000ML 2,990 ML IV SCH (10:36)
[2024-09-14 11:03] LABS: EOSINOPHILS % 0.1 % (0.0-6.0); HEMATOCRIT 33.8 % (34.2-44.1); HEMOGLOBIN 11.5 g/dL (12.0-16.0); LYMPHOCYTES % 7.5 % (18.0-39.1); MEAN CORPUSCULAR HEMOGLOBIN 28.3 pg (28-32); MONOCYTES % 5.1 % (4.4-11.3); NEUTROPHILS % 86.3 % (38.7-80.0); PLATELET COUNT 238 x10e3/uL (140-360); RED BLOOD COUNT 4.07 x10e6/uL (3.6-5.1); RED CELL DISTRIBUTION WIDTH 13.2 % (11.7-14.4); WHITE BLOOD COUNT 20.12 x10e3/uL (4.8-10.8)
[2024-09-14 11:04] LABS: BASOPHILS % 0.1 % (0.0-1.0); LYMPHOCYTES # (AUTO) 1.5 (1.0-3.2); NEUTROPHILS # (AUTO) 17.4 (2.1-6.9)
[2024-09-14 11:26] LABS: ANION GAP 17.3 mmol/L (8-16); BLOOD UREA NITROGEN 15 mg/dL (7-26); BUN/CREATININE RATIO 14 (6-25); CARBON DIOXIDE 21 mmol/L (22-29); CHLORIDE 97 mmol/L (98-107); CREATININE, SERUM 1.08 mg/dL (0.57-1.11); EST GLOMERULAR FILTRATION RATE 64 ML/MIN (>=60); POTASSIUM 3.3 mmol/L (3.5-5.1); SODIUM 132 mmol/L (136-145)
[2024-09-14 11:27] LABS: ALANINE AMINOTRANSFERASE 24 IU/L (0-55); ALBUMIN 3.4 g/dL (3.5-5.0); ALBUMIN/GLOBULIN RATIO 0.7 (0.8-2.0); ALKALINE PHOSPHATASE 85 IU/L (40-150); BILIRUBIN,TOTAL 0.5 mg/dL (0.2-1.2); CALCIUM 8.6 mg/dL (8.4-10.2); GLUCOSE 145 mg/dL (74-118)
[2024-09-14 11:49] LABS: INR 1.14; PARTIAL THROMBOPLASTIN TIME 38.9 seconds (23.8-35.5); PROTHROMBIN TIME 15.3 seconds (11.9-14.5)
[2024-09-14 13:27] LABS: BILIRUBIN,URINE NEGATIVE (NEGATIVE); CLARITY,URINE SL CLOUDY (CLEAR); COLOR,URINE YELLOW (YELLOW); GLUCOSE, URINE NEGATIVE (NEGATIVE); KETONES,URINE NEGATIVE (NEGATIVE); LEUKOCYTE ESTERASE ,URINE SMALL (NEGATIVE); NITRITE,URINE POSITIVE (NEGATIVE); PH,URINE 6 (5 - 7); PROTEIN,URINE DIPSTICK 2+ (NEGATIVE); URINE UROBILINOGEN 0.2 mg/dL (0.2 - 1)
[2024-09-14 13:43] LABS: BACTERIA,URINE MODERATE /HPF; WBC,URINE (MAN) >50 /HPF (0-5)
[2024-09-14 13:44] LABS: EPITHELIAL CELLS,URINE FEW /LPF
[2024-09-14] MEDS ORDERED: Morphine 2mg Syringe 2 MG/ML SYR IV PRN (14:15)
[2024-09-14] MEDS ORDERED: ONDANSETRON HCL INJ 2MG/ML 2ML 2 MG/ML VIAL IV PRN (14:15)
[2024-09-14 15:00] VITALS: PULSE 96; RESP 16
[2024-09-14 16:10] VITALS: BP 110/57; PULSE 116; RESP 22; TEMP 101.2; O2SAT 93
[2024-09-14] MEDS ORDERED: ALBUTEROL/IPRATROPIUM 3 ML NEB NEB PRN (18:45)
[2024-09-14] MEDS ORDERED: METOPROLOL TARTRATE INJ 1 MG/ML VIAL IV PRN (18:45)
[2024-09-14] MEDS ORDERED: DEXTROSE 50% SYRINGE 50 ML IV PRN (18:45)
[2024-09-14 19:05] LABS: CHOL/HDL RATIO 3.1 (3.0-3.6)
[2024-09-14 20:00] VITALS: BP 125/76; PULSE 120; RESP 20; TEMP 100.2
[2024-09-14 21:00] VITALS: BP 125/76; PULSE 120; RESP 20; TEMP 100.2; O2SAT 93
[2024-09-14] MEDS: INSULIN REGULAR, HUMAN 100 UNIT/1 ML SQ SCH (21:00)
[2024-09-14] MEDS: MELATONIN 3 MG TAB PO PRN (21:08)
[2024-09-14] MEDS: SODIUM CHLORIDE 0.9% 1000ML 1,000 ML IV SCH (21:09)
[2024-09-15] VITALS (8 sets, daily range): BP systolic 90–126; BP diastolic 57–76; PULSE 80–97; RESP 17–18; TEMP 98.1–99.7; O2SAT 97–100
[2024-09-15 05:44] LABS: BASOPHILS % 0.2 % (0.0-1.0); EOSINOPHILS % 0.1 % (0.0-6.0); HEMATOCRIT 30.8 % (34.2-44.1); HEMOGLOBIN 10.2 g/dL (12.0-16.0); LYMPHOCYTES # (AUTO) 2.5 (1.0-3.2); LYMPHOCYTES % 16.2 % (18.0-39.1); MEAN CORPUSCULAR HEMOGLOBIN 27.9 pg (28-32); MEAN CORPUSCULAR HGB CONC 33.1 g/dL (31-35); MEAN CORPUSCULAR VOLUME 84.4 fL (81-99); MONOCYTES # (AUTO) 1.3 (0.2-0.8); MONOCYTES % 8.9 % (4.4-11.3); NEUTROPHILS # (AUTO) 11.2 (2.1-6.9); NEUTROPHILS % 73.7 % (38.7-80.0); PLATELET COUNT 212 x10e3/uL (140-360); RED BLOOD COUNT 3.65 x10e6/uL (3.6-5.1); RED CELL DISTRIBUTION WIDTH 13.3 % (11.7-14.4); WHITE BLOOD COUNT 15.13 x10e3/uL (4.8-10.8)
[2024-09-15 06:01] LABS: INR 1.17; PROTHROMBIN TIME 15.6 seconds (11.9-14.5)
[2024-09-15 06:10] LABS: PARTIAL THROMBOPLASTIN TIME 38.3 seconds (23.8-35.5)
[2024-09-15 07:24] LABS: ALBUMIN 2.8 g/dL (3.5-5.0); ALBUMIN/GLOBULIN RATIO 0.7 (0.8-2.0); ANION GAP 14.8 mmol/L (8-16); BILIRUBIN,TOTAL 0.3 mg/dL (0.2-1.2); CALCIUM 8.2 mg/dL (8.4-10.2); CREATININE, SERUM 0.78 mg/dL (0.57-1.11); POTASSIUM 3.8 mmol/L (3.5-5.1); TOTAL PROTEIN 6.8 g/dL (6.5-8.1)
[2024-09-15] MEDS: SENNA-S TABLET PO SCH (08:30)
[2024-09-15] MEDS: ACETAMINOPHEN 325 MG TAB PO PRN (08:33)
[2024-09-16] VITALS (7 sets, daily range): BP systolic 104–115; BP diastolic 59–74; PULSE 64–81; RESP 17–20; TEMP 97.2–98.3; O2SAT 96–100
[2024-09-16 06:22] LABS: ANION GAP 13.4 mmol/L (8-16); CALCIUM 8.3 mg/dL (8.4-10.2); CREATININE, SERUM 0.59 mg/dL (0.57-1.11)
[2024-09-16 06:26] LABS: POTASSIUM 3.4 mmol/L (3.5-5.1)
[2024-09-16 09:47] LABS: BASOPHILS % 0.4 % (0.0-1.0); EOSINOPHILS # (AUTO) 0.1 (0.0-0.4); EOSINOPHILS % 1.1 % (0.0-6.0); HEMATOCRIT 29.9 % (34.2-44.1); HEMOGLOBIN 9.8 g/dL (12.0-16.0); LYMPHOCYTES % 25.5 % (18.0-39.1); MEAN CORPUSCULAR HEMOGLOBIN 28.1 pg (28-32); MEAN CORPUSCULAR HGB CONC 32.8 g/dL (31-35); MEAN CORPUSCULAR VOLUME 85.7 fL (81-99); MONOCYTES # (AUTO) 0.8 (0.2-0.8); MONOCYTES % 10.1 % (4.4-11.3); NEUTROPHILS # (AUTO) 4.9 (2.1-6.9); NEUTROPHILS % 62.4 % (38.7-80.0); PLATELET COUNT 202 x10e3/uL (140-360); RED BLOOD COUNT 3.49 x10e6/uL (3.6-5.1); RED CELL DISTRIBUTION WIDTH 13.5 % (11.7-14.4); WHITE BLOOD COUNT 7.91 x10e3/uL (4.8-10.8)
[2024-09-16] MEDS: SODIUM BICARBONATE 650 MG TAB PO SCH (11:24)
[2024-09-17] VITALS: BP 119/73; PULSE 77; RESP 17; TEMP 98.2; O2SAT 100
[2024-09-17 05:46] LABS: BASOPHILS % 0.5 % (0.0-1.0); EOSINOPHILS # (AUTO) 0.1 (0.0-0.4); EOSINOPHILS % 1.4 % (0.0-6.0); HEMATOCRIT 30.3 % (34.2-44.1); LYMPHOCYTES # (AUTO) 2.1 (1.0-3.2); LYMPHOCYTES % 32.6 % (18.0-39.1); MEAN CORPUSCULAR HEMOGLOBIN 27.7 pg (28-32); MEAN CORPUSCULAR VOLUME 83.9 fL (81-99); MONOCYTES # (AUTO) 0.5 (0.2-0.8); MONOCYTES % 7.1 % (4.4-11.3); NEUTROPHILS # (AUTO) 3.8 (2.1-6.9); NEUTROPHILS % 57.8 % (38.7-80.0); PLATELET COUNT 254 x10e3/uL (140-360); RED BLOOD COUNT 3.61 x10e6/uL (3.6-5.1); RED CELL DISTRIBUTION WIDTH 13.1 % (11.7-14.4)
[2024-09-17 06:12] LABS: CALCIUM 8.6 mg/dL (8.4-10.2); CREATININE, SERUM 0.68 mg/dL (0.57-1.11)
[2024-09-17 07:47] VITALS: BP 117/77; PULSE 78; RESP 16; TEMP 98.6; O2SAT 100
[2024-09-17 08:18] VITALS: BP 117/77; PULSE 78; RESP 16; TEMP 98.6; O2SAT 100
== END 2024-09-17 11:20 | disposition home or self-care (01) | DRG 699 ==
LOC: ER 10:05 → ERHOLD 14:15 → MED/SURG2 16:07
PROVIDERS: ADMIT Internal Medicine; ATTEND Internal Medicine
DX: T83.593A Infection and inflammatory reaction due to other urinary stents, initial encounter (principal); N02.9 Recurrent and persistent hematuria with unspecified morphologic changes; N39.0 Urinary tract infection, site not specified; E66.01 Morbid (severe) obesity due to excess calories; Z68.41 Body mass index [BMI] 40.0-44.9, adult; I10 Essential (primary) hypertension; R73.03 Prediabetes; D64.9 Anemia, unspecified; E83.51 Hypocalcemia; N20.0 Calculus of kidney; K76.0 Fatty (change of) liver, not elsewhere classified; R53.81 Other malaise; R11.2 Nausea with vomiting, unspecified; Z79.85 Long-term (current) use of injectable non-insulin antidiabetic drugs; Z96.0 Presence of urogenital implants; Z90.49 Acquired absence of other specified parts of digestive tract; Y83.1 Surgical operation with implant of artificial internal device as the cause of abnormal reaction of the patient, or of later complication, without mention of misadventure at the time of the procedure
CPT/HCPCS: 36415; 71045; 74176; 80048; 80053; 80061; 81001; 82948; 83036; 83605; 84702; 85025; 85610; 85730; 87040; 87086; 93005; 99284; J0696; J2405; J7030